=== PATIENT | female | born 1950 | race Caucasian/White ===

== ENCOUNTER → 2018-04-30 10:46 | Outpatient (REF) | payer MEDICARE, SELFPAY ==
[2018-04-30 13:02] LABS: ALT 196 U/L (12-78); AST 94 U/L (15-37); Albumin 3.9 g/dL (3.4-5.0); Alkaline Phosphatase 83 U/L (46-116); Bilirubin, Direct 0.16 mg/dL (0.00-0.20); Bilirubin, Total 0.6 mg/dL (0.2-1.0); Total Protein 7.6 g/dL (6.4-8.2)
[2018-04-30 15:52] LABS: Cholesterol 276 mg/dL (50-200); HDL Cholesterol 35 mg/dL (40-60); LDL CHOLESTEROL 187 mg/dL (<100); Triglyceride 263 mg/dL (30-150)
== END ==
LOC: NCHCN 10:46
PROVIDERS: PCP Nurse Practitioner Family; Visit Provider Nurse Practitioner Family
DX: E78.5 Hyperlipidemia, unspecified (principal); K76.0 Fatty (change of) liver, not elsewhere classified; R79.89 Other specified abnormal findings of blood chemistry; E11.9 Type 2 diabetes mellitus without complications; I10 Essential (primary) hypertension
CPT/HCPCS: 80061; 80076; 83721

== ENCOUNTER 2018-09-06 09:28 | Outpatient (REF) | payer MEDICARE, SELFPAY | END 2018-09-06 09:48 | LOC: NCHCN 09:28 | PROVIDERS: PCP Nurse Practitioner Family; Visit Provider Nurse Practitioner Family | DX: N39.0 Urinary tract infection, site not specified (principal) | CPT/HCPCS: 87077; 87086; 87186 ==

== ENCOUNTER 2018-09-30 13:00 | Outpatient (REF) | payer MEDICARE, SELFPAY ==
[2018-09-30 14:25] LABS: ALT 194 U/L (12-78); AST 99 U/L (15-37); Albumin 4.1 g/dL (3.4-5.0); Alkaline Phosphatase 73 U/L (46-116); GGT 147 U/L (5-55)
[2018-09-30 15:00] LABS: Bilirubin, Direct 0.21 mg/dL (0.00-0.20); LDH 162 U/L (81-234)
[2018-09-30 15:04] LABS: Hemoglobin A1C 7.5 % (4.5-6.2)
== END 2018-09-30 13:20 ==
LOC: NCHCN 13:00
PROVIDERS: PCP Nurse Practitioner Family; Visit Provider Nurse Practitioner Family
DX: E11.9 Type 2 diabetes mellitus without complications (principal); E78.5 Hyperlipidemia, unspecified; K76.0 Fatty (change of) liver, not elsewhere classified
CPT/HCPCS: 80076; 82977; 83036; 83615

== ENCOUNTER 2019-02-10 01:40 | Outpatient (CLI) | payer MEDICARE, SELFPAY ==
--- NOTE | 2019-02-10 09:25 | DI.MAMMO_ITS ---
SYMPTOMS/DIAGNOSIS: SCREENING, Z12.31 MAMMOGRAM: Mammograms were interpreted according to the usual protocol including computer analysis with CAD system, tomosynthesis and C view imaging. The breast tissue is of moderate radiodensity. There is no evidence of a dominant mass. There are no suspicious calcifications. A rounded density projected over the inferior portion of the right breast is unchanged when compared with previous images. SUMMARY: No evidence of malignancy, Category 2, yearly screening mammography is recommended. Breast density Category B. MQSA ASSESSMENT OF FINDINGS: Negative with benign findings. Category 2. Patient will receive a letter notifying them of these results. BI-RADS category B. There are scattered areas of fibroglandular density.
== END 2019-02-10 02:00 ==
PROVIDERS: PCP Nurse Practitioner Family; Visit Provider Nurse Practitioner Family
DX: Z12.31 Encounter for screening mammogram for malignant neoplasm of breast (principal)
CPT/HCPCS: 77063; 77067

== ENCOUNTER 2019-06-09 09:28 | Outpatient (REF) | payer MEDICARE, SELFPAY ==
[2019-06-09 15:21] LABS: ALT 40 U/L (14-59); AST 21 U/L (15-37); Albumin 4.2 g/dL (3.4-5.0); Alkaline Phosphatase 58 U/L (46-116); Anion Gap 9.5 mmol/L (3-11); BUN 16 mg/dL (7-18); Bilirubin, Total 0.8 mg/dL (0.2-1.0); CO2 29.5 mmol/L (21.0-32.0); CREATININE 0.87 mg/dL (0.55-1.02); Calcium 9.8 mg/dL (8.5-10.1); Calculated LDL 86 mg/dL; Chloride 99 mmol/L (98-107); Cholesterol 153 mg/dL (50-200); Glucose 132 mg/dL (70-100); HDL Cholesterol 39 mg/dL (40-60); Potassium 4.6 mmol/L (3.5-5.1); Sodium 138 mmol/L (136-145); Total Protein 7.8 g/dL (6.4-8.2); Triglyceride 142 mg/dL (30-150)
== END 2019-06-09 09:48 ==
LOC: NCHCN 09:28
PROVIDERS: PCP Nurse Practitioner Family; Visit Provider Nurse Practitioner Family
DX: E78.5 Hyperlipidemia, unspecified (principal); E11.9 Type 2 diabetes mellitus without complications; I10 Essential (primary) hypertension
CPT/HCPCS: 80053; 80061

== ENCOUNTER 2020-01-09 12:17 | Outpatient (REF) | payer MEDICARE, SELFPAY ==
[2020-01-09 20:27] LABS: ALT 25 U/L (14-59); AST 19 U/L (15-37)
[2020-01-09 20:42] LABS: Hemoglobin A1C 6.3 % (3.8-5.6)
== END 2020-01-09 12:37 ==
LOC: NCHCN 12:17
PROVIDERS: PCP Nurse Practitioner Family; Visit Provider Nurse Practitioner Family
DX: E11.9 Type 2 diabetes mellitus without complications (principal); K76.0 Fatty (change of) liver, not elsewhere classified
CPT/HCPCS: 83036; 84450; 84460

== ENCOUNTER 2020-02-08 08:29 | Outpatient (CLI) | payer MEDICARE, SELFPAY ==
[2020-02-09 16:52] LABS: COVID-19 RT-PCR UVMMC Result Negative (Negative)
== END 2020-02-08 08:49 ==
PROVIDERS: PCP Nurse Practitioner Family; Visit Provider Nurse Practitioner Family
DX: Z03.818 Encounter for observation for suspected exposure to other biological agents ruled out (principal)
CPT/HCPCS: U0003

== ENCOUNTER 2020-06-04 19:04 | Outpatient (REF) | payer MEDICARE, SELFPAY ==
[2020-06-07 15:55] LABS: Patient Race White; SARS-CoV-2 RNA Undetected (Undetected); SARS-CoV-2 Specimen Source Nasal
== END 2020-06-04 19:24 ==
LOC: NCHCN 19:04
PROVIDERS: PCP Nurse Practitioner Family; Visit Provider Family Medicine
DX: Z20.828 Contact with and (suspected) exposure to other viral communicable diseases (principal)
CPT/HCPCS: U0003

== ENCOUNTER 2020-06-12 10:02 | Outpatient (REF) | payer MEDICARE, SELFPAY ==
[2020-06-12 21:09] LABS: ALT 27 U/L (14-59); AST 14 U/L (15-37); Albumin 4.1 g/dL (3.4-5.0); Alkaline Phosphatase 53 U/L (46-116); Anion Gap 5.5 mmol/L (3-11); BUN 13 mg/dL (7-18); Bilirubin, Total 0.7 mg/dL (0.2-1.0); CO2 30.5 mmol/L (21.0-32.0); CREATININE 0.86 mg/dL (0.55-1.02); Calcium 9.6 mg/dL (8.5-10.1); Chloride 100 mmol/L (98-107); Glucose 110 mg/dL (74-106); Potassium 4.3 mmol/L (3.5-5.1); Sodium 136 mmol/L (136-145); Total Protein 7.6 g/dL (6.4-8.2)
== END 2020-06-12 10:22 ==
LOC: NCHCN 10:02
PROVIDERS: PCP Nurse Practitioner Family; Visit Provider Nurse Practitioner Family
DX: I10 Essential (primary) hypertension (principal)
CPT/HCPCS: 80053

== ENCOUNTER 2020-07-02 14:26 | Outpatient (REF) | payer MEDICARE, SELFPAY ==
[2020-07-05 00:45] LABS: Patient Race White; SARS-CoV-2 RNA Undetected (Undetected); SARS-CoV-2 Specimen Source Nasal
== END 2020-07-02 14:46 ==
LOC: NCHCN 14:26
PROVIDERS: PCP Nurse Practitioner Family; Visit Provider Nurse Practitioner Family
DX: Z20.828 Contact with and (suspected) exposure to other viral communicable diseases (principal)
CPT/HCPCS: U0003

== ENCOUNTER 2020-08-06 21:44 | Outpatient (REF) | payer MEDICARE, SELFPAY ==
[2020-08-09 14:33] LABS: Patient Race White; SARS-CoV-2 RNA Undetected (Undetected); SARS-CoV-2 Specimen Source Nasal
== END 2020-08-06 22:04 ==
LOC: NCHCN 21:44
PROVIDERS: PCP Nurse Practitioner Family; Visit Provider Nurse Practitioner Family
DX: Z20.828 Contact with and (suspected) exposure to other viral communicable diseases (principal)
CPT/HCPCS: U0003

== ENCOUNTER 2020-08-15 00:38 | Outpatient (CLI) | payer MEDICARE, SELFPAY ==
--- NOTE | 2020-08-15 11:25 | DI.MAMMO_ITS ---
EXAM: MG MAMMO SCREENING CLINICAL HISTORY: SCREENING, Z12.31. TECHNIQUE: Bilateral full field digital CC and MLO mammographic images were obtained with 3D tomosyn thesis and utilizing computer aided detection (CAD). COMPARISON: Prior mammograms dating back to 2010, the most recent being January 2009. FINDINGS: There are no new spiculated masses. Well-defined round superficial nodule located inferomedially in the right breast is unchanged from prior studies. There are no new dominant masses nor malignant appearing microcalcification groups. Benign microcalci fications again noted bilaterally, unchanged. There is no new architectural distortion nor skin thic kening-retraction. IMPRESSION: No radiographic evidence of malignancy. Stable benign findings BI-RADS Category 2 - Benign Findings Breast Density - Category B - Scattered areas of fibroglandular density Breast density Category C or D implies that the patient has dense breast tissue. Dense breast tissue can make it harder to find cancer on a mammogram. Dense breast tissue is also associated with an incr eased risk of breast cancer. This information about the result of the mammogram report was provided to the patient to raise their awareness. Use this report when you speak with the patient about their risks for breast cancer, which includes their family history. At that time, you may recommend additional screening tests (Ultrasoun d or MRI) as these tests may add significant information. A negative radiographic report should not delay biopsy if a dominant or clinically suspicious mass is present. Up to ten percent of cancers are not identified on mammography. A negative report may reinforce clinical impression. Adenosis and dense breasts may obscure an underlying neoplasm. False positive reports average 6 to 10%. Patient will receive a letter notifying them of these results.
== END 2020-08-15 00:58 ==
PROVIDERS: PCP Nurse Practitioner Family; Visit Provider Nurse Practitioner Family
DX: Z12.31 Encounter for screening mammogram for malignant neoplasm of breast (principal); N63.10 Unspecified lump in the right breast, unspecified quadrant
CPT/HCPCS: 77063; 77067

== ENCOUNTER 2021-01-25 08:46 | Outpatient (REF) | payer MEDICARE, SELFPAY ==
[2021-01-25 14:08] LABS: ALT 41 U/L (14-59); AST 19 U/L (15-37); Albumin 4.2 g/dL (3.4-5.0); Alkaline Phosphatase 62 U/L (46-116); Anion Gap 6.1 mmol/L (3-11); BUN 15 mg/dL (7-18); Bilirubin, Total 0.5 mg/dL (0.2-1.0); CO2 31.9 mmol/L (21.0-32.0); CREATININE 0.8 mg/dL (0.55-1.02); Calcium 9.9 mg/dL (8.5-10.1); Calculated LDL 78 mg/dL (<100); Chloride 101 mmol/L (98-107); Cholesterol 154 mg/dL (<200); Glucose 130 mg/dL (74-106); HDL Cholesterol 41 mg/dL (40-60); Sodium 139 mmol/L (136-145); Total Protein 7.8 g/dL (6.4-8.2); Triglyceride 175 mg/dL (<150)
[2021-01-25 14:51] LABS: Hemoglobin A1C 6.4 % (<5.7)
== END 2021-01-25 08:47 | disposition home or self-care (01) ==
LOC: NCHCN 08:46
PROVIDERS: PCP Nurse Practitioner Family; Visit Provider Nurse Practitioner Family
DX: E11.9 Type 2 diabetes mellitus without complications (principal); I10 Essential (primary) hypertension; E78.5 Hyperlipidemia, unspecified; K76.0 Fatty (change of) liver, not elsewhere classified
CPT/HCPCS: 80053; 80061; 83036

== ENCOUNTER 2021-02-08 03:15 | Outpatient (CLI) | payer MEDICARE, SELFPAY ==
--- NOTE | 2021-02-08 | DI.DEXA_ITS ---
Exam(s) XR DEXA BONE DENSITY W/WO ALBERT EXAM: XR DEXA BONE DENSITY W/WO ALBERT CLINICAL HISTORY: DISORDER OF BONE DENSITY,M85.88 TECHNIQUE: COMPARISON: CR LUMBAR SPINE COMPLETE from 04/11/2014 FINDINGS: DEXA scan was performed according to the usual protocol. On the lateral vertebral scanogram, there i s a T12 compression fracture with increased loss of height of the vertebral body of T12 in comparison with prior lumbar radiographs of March 2014 Findings for left hip scanning showed T-score -1.4 with left femoral neck T-score -1.8. Prior examin ation of February 2018 showed left hip T-score -1.3. Lumbar spine scanning shows T-score -1.0, unchanged from prior examination of 2018. Scanning of the right forearm shows T-score -0.4. IMPRESSION: Findings consistent with osteopenia according to the WHO criteria. Previously noted T12 vertebral ro dy compression fracture shows increased loss of height since prior radiographs of March 2014. RADIATION DOSE DELIVERED: Total DLP
== END 2021-02-08 03:35 ==
PROVIDERS: PCP Nurse Practitioner Family; Visit Provider Nurse Practitioner Family
DX: M85.88 Other specified disorders of bone density and structure, other site (principal)
CPT/HCPCS: 77080

== ENCOUNTER 2021-02-14 00:56 | Outpatient (CLI) | payer MEDICARE, SELFPAY ==
--- NOTE | 2021-02-14 | DI.US_ITS ---
Exam(s) US ABDOMEN EXAM: US ABDOMEN CLINICAL HISTORY: FATTY LIVER DISEASE, K76.0 TECHNIQUE: Ultrasound abdomen performed using standard protocol. COMPARISON: No exams were available for comparison FINDINGS: ABDOMINAL AORTA AND IVC: Visualized portions normal caliber. PANCREAS: Normal where visualized. LIVER: Fatty liver. Hepatopedal flow in the Portal Vein. The liver measures 18.2 cm in length. GALLBLADDER: Status post cholecystectomy. BILIARY SYSTEM: Common bile duct measures < 7 mm. No intrahepatic biliary ductal dilation. KIDNEYS: Kidneys are symmetric in size. There is a 5 mm echogenic focus in the inferior pole of the l eft kidney which may represent a nonobstructing stone. No evidence of hydronephrosis. No renal mass or cyst identified. SPLEEN: Not enlarged. ASCITES: None seen. IMPRESSION: Hepatomegaly and fatty liver. DATA REPOSITORY:
== END 2021-02-14 01:16 ==
PROVIDERS: PCP Nurse Practitioner Family; Visit Provider Nurse Practitioner Family
DX: K76.0 Fatty (change of) liver, not elsewhere classified (principal); R16.0 Hepatomegaly, not elsewhere classified
CPT/HCPCS: 76700

== ENCOUNTER 2022-03-24 12:37 | Outpatient (REF) | payer MEDICARE, SELFPAY ==
[2022-03-24 15:15] LABS: Hemoglobin A1C 6.8 % (<5.7)
[2022-03-24 15:31] LABS: ALT 43 U/L (14-59); AST 30 U/L (15-37); Albumin 4.2 g/dL (3.4-5.0); Alkaline Phosphatase 61 U/L (46-116); BUN 17 mg/dL (7-18); Bilirubin, Total 0.5 mg/dL (0.2-1.0); CO2 29.5 mmol/L (21.0-32.0); CREATININE 0.9 mg/dL (0.55-1.02); Calcium 9.8 mg/dL (8.5-10.1); Calculated LDL 72 mg/dL (<100); Cholesterol 147 mg/dL (<200); Glucose 139 mg/dL (74-106); HDL Cholesterol 41 mg/dL (40-60); Triglyceride 172 mg/dL (<150)
[2022-03-24 15:33] LABS: Anion Gap 9.5 mmol/L (3-11); Chloride 98 mmol/L (98-107); Potassium 4.8 mmol/L (3.5-5.1); Sodium 137 mmol/L (136-145)
== END 2022-03-24 12:38 | disposition home or self-care (01) ==
LOC: NCHCN 12:37
PROVIDERS: PCP Nurse Practitioner Family; Visit Provider Nurse Practitioner Family
DX: E11.9 Type 2 diabetes mellitus without complications (principal); E78.5 Hyperlipidemia, unspecified; I10 Essential (primary) hypertension
CPT/HCPCS: 80053; 80061; 83036

== ENCOUNTER → 2022-05-02 00:04 | Outpatient (CLI) | payer MEDICARE, SELFPAY ==
--- NOTE | 2022-05-02 | DI.US_ITS ---
Exam(s) US ABDOMEN LIMITED EXAM: US ABDOMEN LIMITED CLINICAL HISTORY: FATTY LIVER K76.0 TECHNIQUE: Ultrasound abdomen performed using standard protocol. COMPARISON: US US ABDOMEN from 02/14/2021 FINDINGS: LIVER: Enlarged at 19.3 cm in length. Moderately increasedechogenicity, consistent with fat ext E a ptosis.. No focal liver lesions are seen.. GALLBLADDER: Status post cholecystectomy.. CERVANTES'S SIGN: Negative. BILIARY SYSTEM: No intrahepatic or extrahepatic biliary ductal dilation. RIGHT KIDNEY: Normal size. No evidence of renal calculi. No evidence of hydronephrosis. No suspicious renal mass. No cyst identified. PANCREAS: Normal where visualized. ABDOMINAL AORTA AND IVC: Visualized portions normal caliber. ASCITES: None seen. IMPRESSION: Stable appearance of hepatomegaly and moderate hepatic steatosis. DATA REPOSITORY:
--- NOTE | 2022-05-02 | DI.MAMMO_ITS ---
Exam(s) MAMMO SCREENING EXAM: MAMMO SCREENING CLINICAL HISTORY: SCREENING FOR BREAST CANCER Z12.31 TECHNIQUE: Mammograms were interpreted according to the usual protocol including computer analysis w [employer]xia[employer] CAD system, tomosynthesis and C-view imaging. COMPARISON: 2012 through 2019 FINDINGS: The breasts are composed of scattered fibroglandular densities, Breast Density category B. No suspicious masses or suspicious microcalcifications are seen. Stable 2 centimeters circumscribed nodule in the inferior right breast. Scattered benign calcifications as well as vascular calcificati ons. No skin thickening or abnormal axillary lymph nodes are seen. There has been no significant change from prior exams. IMPRESSION: BI-RADS Cat 2 - Benign Findings Yearly screening mammography is recomme nded. Breast Density - Category B, scattered fibroglandular densities. A negative radiographic report should not delay biopsy if a dominant or clinically suspicious mass is present. Up to ten percent of cancers are not identified on mammography. A negative report may reinforce clinical impression. Adenosis and dense breasts may obscure an underlying neoplasm. False positive reports average 6 to 10%. Patient will receive a letter notifying them of these results.
--- OUTSIDE RECORDS SUMMARY | 2022-05-02 00:06 | XMS_ITS | Encounter Summary ---
:1950 Author Organization [facility] [place] [address] Care Team Providers Name Role Phone Maureen Wang APRN Primary Care Provider [phone] Encounter Details Date Type Department Care Team Description 04/10/2021 Telephone Dermatology at [facility] Carolina Avalos RN [address] [place] [address] Social History Tobacco Use Types Packs/Day Years Used Date Never Smoker Smokeless Tobacco: Never Used Sex Assigned at Date Recorded Not on file documented as of this encounter Miscellaneous Notes Telephone Encounter - Lakeisha Almonte - 04/10/2021 11:39 AM EDT CALLED PATIENT TO RESCHEDULE COOLSCULPT WITH AP. LEFT [phone] FOR CALLBACK. documented in this encounter Plan of Treatment Not on filedocumented as of this encounter Visit Diagnoses Not on filedocumented in this encounter Care Teams Stove Cleaner Relationship Specialty Start Date End Date Maureen Wang APRN PCP - General 03/01/15 [address] [place] [address] documented as of this encounter
--- OUTSIDE RECORDS SUMMARY | 2022-05-02 00:06 | XMS_ITS | Encounter Summary ---
:1950 Author Organization [facility] [place] [address] Care Team Providers Name Role Phone Maureen Wang APRN Primary Care Provider [phone] Reason for Visit Reason Comments Procedure Encounter Details Date Type Department Care Team Description 04/22[facility] Julio Saavedra RN cosmetic procedure [address] [place] [address] Social History Tobacco Use Types Packs/Day Years Used Date Never Smoker Smokeless Tobacco: Never Used Sex Assigned at Date Recorded Not on file documented as of this encounter Progress Notes Carolina Avalos RN - 04/22/2021 2:00 PM EDT See same day cosmetic note for treatment details. documented in this encounter Plan of Treatment Not on filedocumented as of this encounter Visit Diagnoses Diagnosis Encounter for cosmetic procedure documented in this encounter Care Teams Chef & Owner Relationship Specialty Start Date End Date Maureen Wang APRN PCP - General 03/01/15 [address] [place] [address] documented as of this encounter
--- OUTSIDE RECORDS SUMMARY | 2022-05-02 00:06 | XMS_ITS | Encounter Summary ---
:1950 Author Organization [facility] [place] [address] Care Team Providers Name Role Phone Maureen Wang APRN Primary Care Provider [phone] Encounter Details Date Type Department Care Team Description 02/15/2021 Telephone Dermatology at [facility] Carolina Avalos RN [address] [place] [address] Social History Tobacco Use Types Packs/Day Years Used Date Never Smoker Smokeless Tobacco: Never Used Sex Assigned at Date Recorded Not on file documented as of this encounter Miscellaneous Notes Telephone Encounter - Lakeisha Almonte - 02/15/2021 1:45 PM EDT CALLED PATIENT TO LET HER KNOW WE NEEDED TO RESCHEDULE HER APPTS ON 02/22 WITH PHIL (IN NURSE MEETING). LET HER KNOW I WAS HOLDING THE FOLLOWING February UNTIL I HEARD BACK. LEFT [phone] FOR CALLBACK. documented in this encounter Plan of Treatment Not on filedocumented as of this encounter Visit Diagnoses Not on filedocumented in this encounter Care Teams Center Human Resources Manager Relationship Specialty Start Date End Date Maureen Wang APRN PCP - General 03/01/15 [address] [place] [address] documented as of this encounter
--- OUTSIDE RECORDS SUMMARY | 2022-05-02 00:06 | XMS_ITS | Encounter Summary ---
:1950 Author Organization [facility] [place] [address] Care Team Providers Name Role Phone Maureen Wang APRN Primary Care Provider Encounter Details Date Type Department Care Team Description 04/22/2021 Office Visit Dermatology at [facility] [place] [address] Carolina Avalos RN cosmetic procedure [address] [place] [address] Social History Tobacco Use Types Packs/Day Years Used Date Never Smoker Smokeless Tobacco: Never Used Sex Assigned at Date Recorded Not on file documented as of this encounter Progress Notes Carolina Avalos RN - 04/22/2021 1:00 PM EDT DATE OF SERVICE: 04/22/2021 PROVIDER: Carolina Avalos RN Supervising provider (indirect onsite): Malathi Barboza MD Mai Donato : 1950 PATIENT PREFERENCES: -prefers to be called: Mai HELMS Mai Donato is a 70 y.o. year old female. Here for CoolSculpt procedure 04/22/2021. Date and name of most recent procedure: consultation only, patient of Lesly Morrow MD Patient has had no recent changes in health, unexplained weight loss or skin concerns. Here today for coolSculpt to the lower abdomen; will treat right and left lower abdomen. Patient elects to not take pre-treatment photos. COSMETIC TREATMENT VISIT -Any new medications?: no -Pt received pre and post instructions? Yes in AVS -HSV prophylaxis? NA -Stopped retinoids/ Vitamin C/ AHAs? NA -Recent sun exposure? NA -, lactating or trying to conceive?: no -Recent ibuprofen, aspirin, or other blood thinner? (including ginko biloba, vitamin E, fish oil) no ADR: No Known Allergies MEDS: Current Outpatient Medications Medication Sig Dispense Refill ??? FLUoxetine (PROZAC) 10 mg Capsule TAKE TWO CAPSULES BY MOUTH EVERY DAY 3 ??? omeprazole (PRILOSEC) 20 mg Capsule, Delayed Release(E.C.) ??? losartan (COZAAR) 50 mg Tablet 50 mg daily. ??? LORazepam (ATIVAN) 0.5 mg Tablet 0.5 mg as needed. ??? aspirin 81 mg Tablet, Delayed Release (E.C.) Take 81 mg by mouth daily. ??? metFORMIN (GLUCOPHAGE) 500 mg Tablet Take 1,000 mg by mouth 2 times daily (with meals). ??? hydrochlorothiazide (HYDRODIURIL) 25 mg Tablet Take 25 mg by mouth daily. No current facility-administered medications for this visit. EXAMINATION: -New findings: TREATMENT MAPS: DIAGNOSIS/ASSESSMENT: # Body Contouring with Coolsculpting Areas to be treated: - Treatment today? Y, 04/22/2021, see Coolsculpt Log - Special considerations for this patient: - Consent signed?: 04/22/2021 - Consult completed: No, referred directly by Lesly Morrow MD - Gilbert quoted: 1500 per site x 2 sites = 3000 - Coolsculpt AVS given: yes - Notes: patient elects for no pre-treatment photos, able to receive 20% off future CoolSculpt treatments PROCEDURE/TREATMENT LOG(S): Date: 04/22/2021 CoolSculpt Attachments: CoolAdvantage Plus Area treated: Right/left lower abdomen Additional areas discussed: none Total Cost today: 3000 Notes: Follow Up: RTC PRN If any questions or concerns arise, patient is welcome to return to clinic. COSMETIC COST TODAY: $3000 Treatment delivered by Carolina Avalos RN with indirect, onsite supervision by Malathi Barboza MD I was consulted regarding the performed service and I agree with the accuracy of the documentation in this encounter, MD Malathi Hernández MD Department of Dermatology documented in this encounter Plan of Treatment Not on filedocumented as of this encounter Visit Diagnoses Diagnosis Encounter for cosmetic procedure documented in this encounter Care Teams Mineral Industry Teacher Relationship Specialty Start Date End Date Maureen Wang, TUBE SIZER OPERATOR PCP - General 03/01/15 [address] [place] [address] documented as of this encounter
--- OUTSIDE RECORDS SUMMARY | 2022-05-02 00:06 | XMS_ITS | Clinical Summary ---
:1950 Author Organization [facility] Address [address] [address] Care Team Providers Name Role Phone Maureen Wang APRN Primary Care Provider [phone] Allergies No known active allergies Medications Medication Sig Dispensed Refills Start Date End Date Status hydrochlorothiazide Take 25 mg by 0 Active (HYDRODIURIL) 25 mg Tablet mouth daily. losartan (COZAAR) 50 mg 50 mg daily. 0 10/02/2017 Active Tablet LORazepam (ATIVAN) 0.5 mg 0.5 mg as 0 10/06/2017 Active Tablet needed. aspirin 81 mg Tablet, Take 81 mg by 0 Active Delayed Release (E.C.) mouth daily. metFORMIN (GLUCOPHAGE) 500 Take 1,000 mg 0 Active mg Tablet by mouth 2 times daily (with meals). omeprazole (PRILOSEC) 20 0 12/20/2018 Active mg Capsule, Delayed Release(E.C.) FLUoxetine (PROZAC) 10 mg TAKE TWO 3 06/11/2019 Active Capsule CAPSULES BY MOUTH EVERY DAY Active Problems Problem Noted Date Fatty liver 04/05/2019 Diabetes mellitus 04/05/2019 Polyp of colon, adenomatous 04/05/2019 Osteopenia 04/05/2019 History of renal stone 04/05/2019 Depression 04/05/2019 Hyperlipidemia 04/05/2019 Gastroesophageal reflux 04/05/2019 Hypertension 04/05/2019 Anxiety 04/05/2019 History of squamous cell carcinoma 10/06/2011 History of basal cell carcinoma 10/06/2011 Social History Tobacco Use Types Packs/Day Years Used Date Never Smoker Smokeless Tobacco: Never Used Sex Assigned at Date Recorded Not on file Last Filed Vital Signs Vital Sign Reading Time Taken Comments Blood Pressure 138/74 07/07/2019 1:53 PM EDT Pulse 83 04/05/2019 12:56 PM EDT Temperature - - Respiratory Rate - - Oxygen Saturation - - Inhaled Oxygen Concentration - - Weight 75.4 kg (166 lb 3.2 oz) 04/05/2019 12:56 PM EDT Height 170.2 cm (5' 7) 04/05/2019 12:56 PM EDT Body Mass Index 26.03 04/05/2019 12:56 PM EDT Plan of Treatment Health Maintenance Due Date Last Done Comments Covid-19 Vaccine (#1) 1956 Pneumoccocal Vaccine: 65+ (1 - PCV) 1957 DM Opthalmology Exam 1961 DM Urine Microalbumin yearly 1961 Hepatitis C Screening 1969 Tdap adult 1970 Tetanus vaccine 1970 Breast Cancer Share Decision Needed 1991 Colonoscopy 1996 Breast Cancer screening 2001 Zoster vaccine (1 of 2) 2001 Advance Directive 2006 Bone Density Scan 2016 DM Hemoglobin A1c 07/06/2019 04/05/2019 DM Creatinine yearly 04/05/2020 04/05/2019 Influenza (Flu) vaccine (1 of 1 - Influenza standard 05/15/2022 series) Lipid Screening 04/05/2024 04/05/2019 Insurance Payer Benefit Plan / Subscriber ID Effective Phone Address T ype Group Dates MEDICARE MEDICARE PART A [id number] 2018-Prese [phone] [place] [address] AARP SUPPLEMENT AARP SUPPLEMENT [id number] 2017-Cris [address] [place] [address] Care Teams Billet Worker Relationship Specialty Start Date End Date Maureen Wang, CONTROL AREA OPERATOR PCP - General 03/01/[address] [place] [id number]
--- OUTSIDE RECORDS SUMMARY | 2022-05-02 00:07 | XMS_ITS | Encounter Summary ---
:1950 Author Organization [facility] [place] [address] Care Team Providers Name Role Phone Maureen Wang APRN Primary Care Provider [phone] Encounter Details Date Type Department Care Team Description 07/07/2019 Telephone Dermatology at [facility], [facility], [facility] [place] [address] [place] [address] [address] [place], [place] [address] (Wo rk) Social History Tobacco Use Types Packs/Day Years Used Date Never Smoker Smokeless Tobacco: Never Used Sex Assigned at Date Recorded Not on file documented as of this encounter Miscellaneous Notes Telephone Encounter - Lilian Quiroz LPN - 07/07/2019 7:39 AM EDT Pre-Op Excision Phone Call Unable to reach Mai Donato by telephone to discuss pre-op procedure. Message left for patient to return my call. Lilian Quiroz LPN documented in this encounter Plan of Treatment Not on filedocumented as of this encounter Visit Diagnoses Not on filedocumented in this encounter Care Teams Claims Customer Service Representative Relationship Specialty Start Date End Date Maureen Wang APRN PCP - General 03/01/15 [address] [place], [place] [id number] documented as of this encounter
--- OUTSIDE RECORDS SUMMARY | 2022-05-02 00:07 | XMS_ITS | Encounter Summary ---
:1950 Author Organization [facility] [place] [address] Care Team Providers Name Role Phone Maureen Wang APRN Primary Care Provider [phone] Encounter Details Date Type Department Care Team Description 04/08/2019 Orders Only [facility]ology at [facility] Tariq Lindsey NAFLD (nonalcoholic fatty li genet disease); [facility] FRANCO Mota Type 2 diabetes mellitus with other spec ified complication, without long-[place] [address] [facility] [phone] [place] [address] Social History Tobacco Use Types Packs/Day Years Used Date Never Smoker Smokeless Tobacco: Never Used Sex Assigned at Date Recorded Not on file documented as of this encounter Plan of Treatment Not on filedocumented as of this encounter Visit Diagnoses Diagnosis NAFLD (nonalcoholic fatty liver disease) Other chronic nonalcoholic liver disease Type 2 diabetes mellitus with other spec ified complication, without long-term current use of insulin documented in this encounter Care Teams Heating And Ventilating Drafter Relationship Specialty Start Date End Date Maureen Wang APRN PCP - General 03/01/15 [address] [place], [place] [address] documented as of this encounter
--- OUTSIDE RECORDS SUMMARY | 2022-05-02 00:07 | XMS_ITS | Encounter Summary ---
:1950 Author Organization [facility] [place] [address] Care Team Providers Name Role Phone Maureen Wang APRN Primary Care Provider [phone] Encounter Details Date Type Department Care Team Description 06/16/2019 Telephone Dermatology at [facility], [facility], [facility] [place] [address] [facility] [phone] [address] [place], [place] [address] (Wo rk) Social History Tobacco Use Types Packs/Day Years Used Date Never Smoker Smokeless Tobacco: Never Used Sex Assigned at Date Recorded Not on file documented as of this encounter Miscellaneous Notes Telephone Encounter - Teri Nam - 06/16/2019 11:49 AM EDT Patient contacted the clinic on 06/14 to reschedule her canceled visit on 06/10. I returned her call today but was unable to speak w/ anyone when I called. I was able to leave a detailed message regarding the 07/07 appointment currently scheduled. I left both 01/3105 and 01/3100 for call back if this date and time does not work for her. documented in this encounter Plan of Treatment Not on filedocumented as of this encounter Visit Diagnoses Not on filedocumented in this encounter Care Teams Distribution Spec Relationship Specialty Start Date End Date Maureen Wang APRN PCP - General 03/01/15 [address] [place] [address] documented as of this encounter
--- OUTSIDE RECORDS SUMMARY | 2022-05-02 00:07 | XMS_ITS | Encounter Summary ---
:1950 Author Organization [facility] [place] [address] Care Team Providers Name Role Phone FelipeMaureen gordon VERONA Primary Care Provider [phone] Reason for Visit Reason Comments Procedure Encounter Details Date Type Department Care Team Description 07/07/2019 Procedure visit Dermatology at [facility] ([facility] MD Arnol inclusion cyst) [address] [facility] [address] [facility] [phone] [place] [id number] Social History Tobacco Use Types Packs/Day Years Used Date Never Smoker Smokeless Tobacco: Never Used Sex Assigned at Date Recorded Not on file documented as of this encounter Last Filed Vital Signs Vital Sign Reading Time Taken Comments Blood Pressure 138/74 07/07/2019 1:53 PM EDT Pulse - - Temperature - - Respiratory Rate - - Oxygen Saturation - - Inhaled Oxygen Concentration - - Weight - - Height - - Body Mass Index - - documented in this encounter Patient Instructions Patient InstructionsLilian Quiroz LPN - 07/07/2019 1:30 PM EDT Section of Dermatology POST OPERATIVE INSTRUCTIONS Wash your hand before changing the dressing. The dressing on the site should remain in place and dry until Thursday The dressing should then be removed gently After removing the dressing, daily wound care should be performed as follows: Clean the wound with warm water and soap,then pat dry the area Apply either Vaseline or Aquaphor Ointment Cover the wound with a new dressing such as Telfa and Tape, or a Band-Aid Do not use peroxide or an antibiotic ointment /cream(Neosporin or Bacitracin) on the wound. For discomfort, you may take Tylenol or other non-aspirin pain medication for the first 48 hours, after 48 hours it is ok to switch to ibuprofen as needed. If bleeding should occur, pressure should be applied constantly for 15 minutes on the dressing with the help of a towel, wash cloth, or piece of gauze. The sutures should be removed in 10 days. It is important that you avoid strenuous and/or vigorous activities, heavy lifting (More than 5-10 lbs), and bending for a period of 2 weeks If you have questions, please contact the office of Dr. Odalys BROWN during the day at [phone] Nurse: Lilian After 5 PM and on weekends, please call the hospital number , and ask for the Used Car Manager cotton header. documented in this encounter Progress Notes Ciro Arenas MD - 07/07/2019 1:30 PM EDT Images from the original note were not included. Dermatology Procedure Note Surgeon: CIRO ARENAS MD Column Precaster: Lilian Quiroz LPN Referring provider: Dr. Arenas Preferred name: Mai Preferred contact method with results: phone Message okay? yes HPI/CC: Mai Donato is a 68 y.o. female here today for treatment of a cyst x 2 Relevant Pathology: none Examination & Findings: Skin exam: A focused skin exam was performed of the back. Skin findings: EIC x 2 (A) Lesion EIC 1.0 cm superior to lesion B (B) Lesion EIC 0.5cm inferior to lesion A Time Out Questions: A time out was performed including patient full name, date of and site. YES//NO If YES: details Any blood thinners? yes ASA Defibrillator or pacemaker? no Artificial heart valves? no Prosthetic devices or implants? no Abx prior to procedure? no If yes: Time taken? Allergies: Local anesthetics? Latex? Glue/adhesive? Chlorhexidine? none Patient Counseling & Consent: I previously explained the diagnosis to Mai and discussed treatment options. I explained the risksassociated with his procedure, including but not limited to: incomplete removal, recurrence, scar, keloid/hypertrophic scar, bleeding, infection, nerve damage, and bruising. A mutual decision was made to proceed after Mai expressed verbal understanding and agreement. Written consent obtained today. Procedure Details: Lesion A is first in all sections Name of procedure Excision w/ intermediate repair Location Right back Pre-op diagnosis EIC x 2 Size (maximal) (cm) 1.0cm/ 0.5cm Margins (cm) 0.3cm/narrow Size + margins (cm) 1.6cm/0.5cm Sterile prep Chloraprep Anesthesia 1% lidocaine with epinephrine 14cc Suture (adipose/dermis) Monocryl Suture (epidermis) Prolene Final wound length 4cm/2cm Procedure Notes: The patient was prepared and draped in a sterile manner. Anesthesia was administered by local infiltration. A fusiform shape was drawn around the lesion, and the margins were incised to the level of the fascia with a # 10 blade. The tissue was removed with sharp and blunt dissection. The lateral margins of the the resulting defect were minimally undermined with sharp and blunt dissection, and hemostasis was obtained with electrocautery. The deeper layers of the defect including subcutaneous fat wereapproximated to reduce tension on the suture line. A layered wound closure was performed, as above. Post-Operative Details: Specimen in formalin and sent to Pathology Yes Wound dressing Vaseline and pressure dressing Post-op pain 0/10 Complications None Blood loss <1mL Suture removal (days) 10 Post-Operative Photo: Patient Instructions: Wound care reviewed with patient and AVS provided. In the event of a suspected infection, the patient knows to call the clinic or the on-call form grader over the weekend. Follow up: 10 days for suture removal Signatures: I, Lilian Quiroz LPN, have performed the documentation for this encounter in the presence of and acting as a scribe for CIRO ARENAS MD. I performed the services which were documented by the scribe, and I agree with the accuracy of the documentation in this encounter. CIRO ARENAS MD Section of Dermatology [facility] documented in this encounter Plan of Treatment Not on filedocumented as of this encounter Procedures Procedure Name Priority Date/Time Associated Diagnosis Comme nts SPECIMEN TO Routine 07/07/2019 5:12 PM EIC (epidermal Results for this PATHOLOGY EDT inclusion cyst) procedure ar e in the results section. SURGICAL PATHOLOGY Routine 07/07/2019 2:10 PM Res ults for this REPORT EDT procedure are i n the results section. documented in this encounter Results Specimen to Pathology (07/07/2019 5:12 PM EDT) Specimen Anatomical Collection Method Collection Time Receive d Time (Source) Location / / Volume Laterality AP Specimen 07/07/2019 5:12 PM 9 9:48 EDT AM [address] [facility] - 07/08/2019 9:48 AM EDT Specimen requisition ordered. ??Separate Pathology report to follow Resulting Agency Comment Spec In Lab Ciro Arenas MD PATHOLOGY/CYTOLOGY ORDERABLE S Performing Organization Address City/State/[place] [address] Surgical Pathology Report (07/07/2019 2:10 PM EDT) Component Value Ref Test Analysis Performed At [facility] gist Range Method Time Signature Surgical [id number] ? Location: [facility] Report The signing pathologist has (i) examined the relevant preparation(s) for the [facility] specimen(s) and (ii) rendered or confirmed the diagnosis(es) . [facility] . ?Surgic al Pathology DIAGNOSIS A - Skin, right back superior to specimen b, excision: - Portion of follicular cyst, ruptured, ?? present at the deep specimen edge - Incidental ??intradermal m elanocytic nevus, free of the specimen edges in the examined planes of section B - Skin, right back inferior to specimen a, excision: - Fragments of keratin, consistent with contents of follicul ar cyst Electronically signed by: ??Beatriz Bautista MD Verified: ??07/13/2019 ?Dermatopathologist Performed at: ??-[facility] Dept. of Pathology, [place], [place] CLINICAL INFORMATION Specimen Submitted: A - Skin, right back superior to specimen b, excision, (1) B - Right back inferior to specimen a, excision, (1) Clinical History and Diagnosis: A - 1.0 cm EIC; EIC B - 0.5 cm EIC; EIC SPECIMEN PROCESSING A - Labeled/Fixative: Right back superior to B, formalin. Quantity/Size: ??Single, 4.0 x 1.3 x 1.2 cm. Tissue Description: Elliptic al excision of brown skin with central punctum. There is a 0.5 cm holcomb-brown papule a t one pole. Underlying the punctum is a ??1.5 x 0.9 x 0.6 cm cyst filled with holcomb, so ft material. The cyst lies exposed at the deep margin. Sections/Processing: Inked, serially sectioned an d call center support representative sections submitted in 3 cassettes as follows: ?A1: ??Papule ?A2-A3: ??Cyst B - Labeled/Fixative: Right back inferior to A, formalin. Quantity/Size: ??Two, 0.7 and 0.9 cm. Tissue Description: Irregular, holcomb-white friable tissue. Sections/Processing: Bisected and entirely submitted in 1 cassette labeled B1. ??sns Specimen (Source) Anatomical Collection Method Collection Time Re ceived Time Location / / Volume Laterality 07/07/2019 2:10 PM EDT Ciro Arenas MD PATHOLOGY/CYTOLOGY ORDERABLE S Performing Organization Address City/State/[place] [address] [address] documented in this encounter Visit Diagnoses Diagnosis EIC (epidermal inclusion cyst) Sebaceous cyst documented in this encounter Care Teams City Superintendent Relationship Specialty Start Date End Date Maureen Wang APRN PCP - General 03/01/15 [address] [place] [address] documented as of this encounter
--- OUTSIDE RECORDS SUMMARY | 2022-05-02 00:07 | XMS_ITS | Encounter Summary ---
:1950 Author Organization [facility] Address [facility] [place] [address] Care Team Providers Name Role Phone Maureen Wang TECHNICAL DOCUMENT WRITER Primary Care Provider [phone] Reason for Visit Reason Comments Skin Check Encounter Details Date Type Department Care Team Description 03/10/2019 Office Visit Dermatology at [facility] story of SCC (squamous cell carcinoma) of skin; Julio Ambrose MD Epidermal inclusion cyst; [address] [facility] History of basal cell carcin john; [place] [address] Multiple benign nevi; [phone] [facility] Lentigines; RD-DERMATOLOGY Seborrheic keratoses [place], [place] [address] Social History Tobacco Use Types Packs/Day Years Used Date Never Smoker Smokeless Tobacco: Never Used Sex Assigned at Date Recorded Not on file documented as of this encounter Progress Notes Ciro Morrow MD - 03/10/2019 3:30 PM EDT Images from the original note were not included. Mai Donato 03/10/2019 [id number] Lesly Morrow MD ([id number]) Chief Problem: 1. Pigmented Lesion and Skin Cancer Examination 2. 11/25/02-Left??upper posterior calf-SCC,excision 3. 08/15/05-medial canthus-BCC History: 68 y.o. year old female. Established patient to me. No significant changes in health or medications since last visit. Patient presents to the clinic today for a full skin cancer examination with history as listed above. No specific areas of concern today. Medications: reviewed All: reviewed Review of Systems: Feels well, no fatigue, no weight loss, no other skin concerns Current Outpatient Medications on File Prior to Visit Medication Sig Dispense Refill ??? losartan (COZAAR) 50 mg Tablet 50 mg daily. ??? pravastatin (PRAVACHOL) 80 mg Tablet 80 mg daily. ??? LORazepam (ATIVAN) 0.5 mg Tablet 0.5 mg as needed. ??? FLUoxetine (PROZAC) 10 mg Capsule 10 mg daily. ??? aspirin 81 mg Tablet, Delayed Release (E.C.) Take 81 mg by mouth daily. ??? metFORMIN (GLUCOPHAGE) 500 mg Tablet Take 500 mg by mouth daily. ??? hydrochlorothiazide (HYDRODIURIL) 25 mg Tablet Take 25 mg by mouth daily. No current facility-administered medications on file prior to visit. Examination: Patient was alert, well-appearing and in no noticeable distress. A skin examination was performed. This includes the head, neck, face and scalp including behind the ears. The chest, abdomen, back, and axillae, as well as the arms, hands, palms, fingers. Legs, feet, toes and soles were also examined. Specific findings: 1. History of basal cell carcinoma located on the right medial canthus s/p Mohs, 08/2005 2. History of squamous cell carcinoma - Right thigh s/p ED&C, 04/2018 - Left upper posterior calf s/p excision, 11/2002 - No signs of recurrence 3. Epidermal inclusion cyst x 2 located on the back 4. Benign appearing nevi located on the trunk and extremities, including the right great toe 5. Solar lentigines located on the trunk and extremities 6. Seborrheic keratoses located on the trunk and extremities Photos taken with patient consent by Dr. Lesly Morrow. Assessment/Diagnosis: 1. History of basal cell carcinoma 2. History of squamous cell carcinoma 3. Epidermal inclusion cysts, x 2 on back, excision at a later date 4. Benign appearing nevi, patient reassured 5. Solar lentigines, patient reassured 6. Seborrheic keratoses, patient reassured Treatment/Plan: Discussion - Spent over half of this visit discussing pathophysiology and the diagnosis, and counselling this patient on treatment options, expectations and follow-up plan. - Specifically discussed: 1. Sun avoidance re-emphasized, sunscreen, hats, clothing as always. 2. Discussed excision of epidermal inclusion cysts on her back. Patient would like to proceed with removal of both. Follow up: 1. For EIC excision. 2. 1 year for skin cancer exam, sooner if needed. I am documenting this encounter acting as the scribe for and in the presence of Dr. Morrow,Lilian Cohn LPN and Ann Moore. I performed the above scribed service and agree with the accuracy of the documentation in this encounter, MD Lesly Palacios M.D. Section of Dermatology documented in this encounter Plan of Treatment Not on filedocumented as of this encounter Visit Diagnoses Diagnosis History of SCC (squamous cell carcinoma) of skin Personal history of other malignant neop lasm of skin Epidermal inclusion cyst Sebaceous cyst History of basal cell carcinoma Personal history of other malignant neop lasm of skin Multiple benign nevi Benign neoplasm of skin, site unspecifie d Lentigines Other dyschromia Seborrheic keratoses Other seborrheic keratosis documented in this encounter Care Teams Film Librarian Relationship Specialty Start Date End Date Maureen Wang, TECHNICAL DOCUMENT WRITER PCP - General 03/01/15 [address] [place] [address] documented as of this encounter
--- OUTSIDE RECORDS SUMMARY | 2022-05-02 00:07 | XMS_ITS | Encounter Summary ---
:1950 Author Organization [facility] Address [facility] [place] [address] Care Team Providers Name Role Phone Maureen Wang AUTOMATIC ENGRAVER Primary Care Provider [phone] Reason for Visit Reason Comments GI Problem Consultation (Routine) - Closed Specialty Diagnoses / Procedures Referred By Contact Refer red To Contact Gastroenterology Diagnoses fatty liver disease, elevated LFTs, hyperlipidemia Maureen Wang, [facility] c Gastro 4l AUTOMATIC [employer] [facility] [address] [place] [address] [place] [address] Phone: Fax: Referral ID Status Reason Start Date Expiration Date Visits V isits Requested Authorized [id number] Closed Consult, 02/02/2019 02/02/2020 1 1 [facility] & Treat Connection Center Encounter Details Date Type Department Care Team Description 04/05/2019 Office Visit Gastroenterology at [facility] Tariq Lindsey Fatty liver (Primary Dx); [facility] FRANCO Mota Abnormal liver function tests; [place] [address] [facility] hyperlipidemia; [phone] Center Type 2 diabetes mellitus with other spec ified complication, without long-term [place] [address] Social History Tobacco Use Types Packs/Day Years Used Date Never Smoker Smokeless Tobacco: Never Used Sex Assigned at Date Recorded Not on file documented as of this encounter Last Filed Vital Signs Vital Sign Reading Time Taken Comments Blood Pressure 150/83 04/05/2019 12:56 PM EDT Pulse 83 04/05/2019 12:56 PM EDT Temperature - - Respiratory Rate - - Oxygen Saturation - - Inhaled Oxygen Concentration - - Weight 75.4 kg (166 lb 3.2 oz) 04/05/2019 12:56 PM EDT Height 170.2 cm (5' 7) 04/05/2019 12:56 PM EDT Body Mass Index 26.03 04/05/2019 12:56 PM EDT documented in this encounter Progress Notes Tariq Lindsey PA - 04/05/2019 1:00 PM EDT Images from the original note were not included. HEPATOLOGY NEW PATIENT CONSULTATION Patient: Mai Donato Sex: female Date of : 1950 WARRANT CLERK: Tariq Lindsey PA-C PCP: Maureen Wang APRN Requesting Provider: Maureen Wang 04/05/19 REASON FOR CONSULTATION: Fatty liver, elevated LFTs PROBLEM LIST Patient Active Problem List Diagnosis Code ??? History of squamous cell carcinoma Z85.89 ??? History of basal cell carcinoma Z85.828 ??? Fatty liver K76.0 ??? Diabetes mellitus E11.9 ??? Polyp of colon, adenomatous D12.6 ??? Osteopenia M85.80 ??? History of renal stone Z87.442 ??? Depression F32.9 ??? Hyperlipidemia E78.5 ??? Gastroesophageal reflux K21.9 ??? Hypertension I10 ??? Anxiety F41.9 HISTORY OF PRESENT ILLNESS Mai Donato is a 68 y.o. female referred to hepatology clinic for evaluation of fatty liver disease and associated abnormal liver function tests. She was seen previously by a local casing worker, Dr. Calles, who suggested that she lose about 15 pounds and cut alcohol use, as well as discontinue her statin for hyperlipidemia for the treatment of fatty liver. She states that she is gone back and forth with her PCP about treatment of hyperlipidemia, which is very prevalent in her family history, as a statin would be most preferred clinically, and she is not interested or cannot tolerate other options. She was considering Repatha, but this wasgoing to be expensive and she would rather not give herself injections. She states that she has lostabout 10 pounds over the last year and has made some good changes with her diet. [place] and was working out a lot. She admits that there was a period of time for about 2 years where she was really bad with alcohol use, and was having a couple glasses of wine every day. Right now she probably drinks about 2 drinks weekly but only on weekends. She believes her diabetes is under fairly good control and is curious to see what her A1c is today. Previously it was 7.4% in November, though lately her sugars in the mornings have been between 90 and 110s. She is on 2000 mg of metformin daily and has not ever been on any other treatments. She is unsureif she has sleep apnea or issues with her thyroid. Her states that she snores during the night but she feels she sleeps well. Regarding symptoms, she states she has some vague upper abdominal cramping in the mornings that usually go away and these are of no concern to her. Heartburn is well controlled on medication. She denies any issues including jaundice, easy bruising or bleeding, swelling in her legs or abdomen, or pale-colored stools. Lately her bowel movements have been more in volume than usual, though this is not uncomfortable and does not cause any pain. She goes about 3 times after breakfast every day and sometimes needs to plan around this. She thinks this may be related to changes in her diet. She does have some stress in her life currently and is planning to separate from her . REVIEW OF SYSTEMS General: Admits weight loss (planned), denies fatigue, poor sleep, fever, chills, night sweats Skin: Denies new rashes, easy bruising, jaundice EENT: Denies blurred vision or change in vision, hearing loss, sinus problems, dry eyes or mouth Endocrine: Denies change in tolerance to heat or cold, excessive thirst Cardiovascular: Denies chest pain, palpitations or irregular heart beat, pain in legs with walking, swelling in feet Pulmonary: Denies SOB, persistent cough, coughing up blood, asthma or wheezing Gastrointestinal: Admits some fecal urgency, epigastric cramping, denies poor appetite, indigestion,trouble swallowing, diarrhea, constipation, nausea/vomitting, rectal bleeding or blood in stools. Musculoskeletal: Denies pain in joints, back pain, neck or shoulder pain, muscle cramping, movement of legs at night. Neurologic: Admits some numbness/pain in left leg, denies blackouts or loss of consciousness, headache, weakness or numbness in arms, tremor, worsening memory and concentration Genitourinary: Denies frequent urination, blood in urine Psychiatric: Admits stress and anxiety, denies changes in mood or behavior MEDICATIONS Current Outpatient Medications Medication Sig Dispense Refill ??? omeprazole (PRILOSEC) 20 mg Capsule, Delayed [...] No current facility-administered medications for this visit. 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 Marital status: , 3 children (one stepchild), 9 grandchildren Smoking: Never Alcohol: See HPI Other drug: None FAMILY HISTORY Negative except as noted below Medical problem Family member Medical Problem Family member Medical Problem Family member Alcohol drug Problem Father EtOH Kidney disease Mental illness Anemia or Blood Disease Liver disease Depression Diabetes Liver cancer Seizure High blood pressure Stroke Lung disease Heart disease Clotting problems Colon Cancer High cholesterol Lots of family Immune disorders Other Cancer PHYSICAL EXAM Vitals: 04/05/19 1256 BP: 150/83 Pulse: 83 Weight: 75.4 kg (166 lb 3.2 oz) Height: 170.2 cm (5' 7) Body mass index is 26.03 kg/m??. Constitutional: Well appearing, appropriate, no acute distress Skin: Tanned complexion, no cyanosis, no palmar erythema, no jaundice, no spider angiomata Head: Normocephalic, PERRLA, sclerae anicteric, oropharynx within normal limits CVS: RRR, normal S1/S2, no murmurs, rubs, or gallops, equal pulses in bilateral upper and lower extremities Lungs: Clear to auscultation bilaterally, no wheezes, rales, or rhonci Abdomen: Nontender, nondistended, no hepatosplenomegaly, no masses, no fluid wave, no umbilical hernia, no caput medussae, positive bowel sounds Neurologic: Alert and oriented x 3, no asterixis or tremor Extremities: No edema, no clubbing, no muscle wasting, no joint swelling RESULTS Recent Results (from the past 24 hour(s)) IgA Result Value Ref Range IgA 195 70 - 400 mg/dL A1AT Serum Concentration Result Value Ref Range A1AT 97 90 - 200 mg/dL Prothrombin Time Result Value Ref Range PT 12.0 9.4 - 12.5 sec INR 1.0 Ferritin Result Value Ref Range Ferritin 153 30 - 400 ng/mL Iron and TIBC Result Value Ref Range Iron 100 30 - 150 mcg/dL TIBC 390 250 - 450 mcg/dL Iron Saturation 26 20 - 50 % IgM Result Value Ref Range IgM 133 40 - 230 mg/dL IgG Result Value Ref Range IgG 1,086 700 - 1,600 mg/dL Hepatitis B Surface Antigen Result Value Ref Range HepB Surface Ag Negative Negative Lipid Panel Result Value Ref Range Chol, Total 263 mg/dL Triglycerides 274 mg/dL HDL 35 mg/dL LDL Cholesterol 173 mg/dL Chol/HDL Ratio 7.5 ratio Lipid Interpretation See Note TSH Result Value Ref Range TSH 1.94 0.27 - 4.20 mcIU/mL Hemoglobin A1c Result Value Ref Range Hemoglobin A1C 6.6 (H) 4.3 - 5.6 % Est Avg Gluc 143 mg/dL Comprehensive metabolic panel (non-fasting) Result Value Ref Range Glucose Lvl 98 65 - 199 mg/dL BUN 14 8 - 18 mg/dL Creatinine 0.73 0.70 - 1.20 mg/dL Sodium 137 135 - 145 mmol/L Potassium 3.8 3.5 - 5.0 mmol/L Chloride 95 (L) 98 - 107 mmol/L CO2 27 22 - 31 mmol/L Anion Gap 15 5 - 15 mmol/L Calcium 10.1 8.5 - 10.5 mg/dL Total Protein 8.0 6.1 - 8.0 gm/dL Albumin 4.9 3.2 - 5.2 gm/dL AST 27 0 - 30 unit/L ALT 39 (H) 0 - 30 unit/L Alk Phos 54 40 - 104 unit/L Total Bilirubin 0.7 0.2 - 1.3 mg/dL eGFR 85 >=60 mL/min/1.73 m?? eGFR 99 >=60 mL/min/1.73 m?? Hemogram Result Value Ref Range WBC 7.1 4.0 - 9.5 x10(3)/mcL RBC 4.18 4.00 - 5.21 x10(6)/mcL Hemoglobin 12.6 11.7 - 15.5 gm/dL Hematocrit 37.9 35.7 - 45.8 % MCV 90.7 82.6 - 94.4 fL MCH 30.1 27.1 - 32.0 pg MCHC 33.2 31.7 - 35.0 gm/dL Platelets 213 145 - 357 x10(3)/mcL RDWSD 38.9 37.0 - 46.0 fL RDWCV 11.8 11.5 - 14.1 % MPV 10.1 7.6 - 12.9 fL nRBC % Auto 0.0 % nRBC Abs Auto 0.000 0.000 - 0.000 x10(3)/mcL Differential, Automated Result Value Ref Range Neutrophils % 50.7 % Neutr Abs (ANC) 3.60 1.70 - 6.10 x10(3)/mcL Lymphocytes % 39.9 % Lymphocytes Abs 2.8 0.9 - 3.2 x10(3)/mcL Monocytes % 7.0 % Monocyte Abs 0.5 0.3 - 0.9 x10(3)/mcL Eosinophils % 1.0 % Eosinophils Abs 0.1 0.0 - 0.4 x10(3)/mcL Basophils % 1.1 % Basophils Abs 0.1 0.0 - 0.1 x10(3)/mcL Immature Gran % 0.30 % Cely Gran Abs 0.02 0.00 - 0.04 x10(3)/mcL FIB-4 = 1.36 Non-DH Laboratory: 12/02/18 @ [facility] Center: 09/30/18: 08/20/18: 01/29/18: Imagin10/01/17 @ [facility]: Fibroscan Results Today: Median kPa: 6.3 Mean IQR: 16% (goal is <30 %) Number of valid measurements: 10 (10 required) Number of invalid measurements: 0 Predicted fibrosis stage: F0-F1 CAP (dB/m): 338 ASSESSMENT/PLAN Mai Donato is a 68 y.o. female with type 2 diabetes, hyperlipidemia, hypertension, and GERD who was noted to have significantly elevated transaminases for at least the last 1.5 years, and hepatic steatosis noted on ultrasound in September 2017. She had been evaluated previously by a local casing worker and was advised to lose weight, decrease alcohol, and discontinue her statin for cholesterol treatment. She did make good progress with increasing activity and changes in her diet and has lost approximately 10 pounds in the last year. Diabetes appears to be under good control and on repeating A1c today it is 6.6%, down from 7.4% in November. TSH today is normal and it is unclear if she has obstructive sleep apnea for other metabolic risk factors for fatty liver disease. She drinks a mild amount of alcohol, though does state that she was drinking daily for about 2 years recently. I believe that given her metabolic risk factors that this is more likely nonalcoholic fatty liver disease (NAFLD) orperhaps nonalcoholic steatohepatitis (ZUNIGA), however the latter is a histologic diagnosis. Transaminases today are remarkably improved, close to normal limits. There was improvement between September and November this past year as well, which may be a result of her lifestyle changes. Similarly, lipid panel today has also improved especially with the triglycerides, though she is still without medical treatment. I discussed with her that I believe it is important to treat her hyperlipidemia as clinically indicated as this is a major risk factor for fatty liver disease. Statins are usually safe to use in the setting of any liver disease. I suggested that she discuss with her PCP about possibly restarting a statin at a low dose, and to also consider additional OTC therapies such as omega-3 fattyacids or fish oil. Also reassured that Fibroscan today suggests minimal, if any, fibrosis. She does have high-grade steatosis however which supports ultrasound findings. A FIB-4 today's calculated at 1.36, which is a lowscore and suggests approximately 90% negative predictive value for advanced fibrosis. She shows no certain concerning signs or symptoms for advanced liver disease as well. Fatty liver disease is one of the most common causes of liver disease in the [place]. It is regarded as the liver manifestation of metabolic syndrome, associated with cardiovascular disease and predisposition to developing diabetes. The goals of treatment are treating or managing risk factors. We discussed the importance of lifestyle interventions and making healthy food choices as the backboneof treatment for this condition. We set realistic weight loss goals; goal is to focus on loosing 10-15% of total body weight over a year by incorporating regular exercise, lifestyle modifications, and healthy food choices including portion control. In addition I would recommend avoiding high fructose corn syrup and artifical sweeteners. Diet should be low in carbohydrates and high in protein, similarto a diabetic or Mediterranean diet. Given the severity of transaminases within the last year prior to today's consult, it would also be important to rule out other causes of this other than fatty liver. Hepatitis C was previously ruled out, and today she does not have active hepatitis B infection. Other labs thus far show normal IgG, IgA, and IgM concentrations, and normal alpha-1 antitrypsin. Pending labs include autoantibodies MARIA ELENA, ASMA, AMA, and TTG IgA to rule out celiac disease. Plan: -Await remaining lab results. -Diet and lifestyle changes as described above. Provided information on Mediterranean diet today. Avoid high fructose corn syrup. Black coffee 2 to 3 cups daily may be beneficial in preventing fibrosisformation. -There is likely no benefit from vitamin E supplementation given her diabetes history and cardiac risk factors. -No additional imaging needed at this time. -Recommend medical treatment of hyperlipidemia as clinically indicated. It is okay to start a low-dose statin. Consider addition of omega-3 fatty acids or fish oil. -Continue to treat other metabolic syndrome with tight diabetic control. Consider sleep study to evaluate for DYLAN. -Okay to continue other current medications. -Follow-up with primary care as needed/planned. -Hepatology follow-up likely in 6 months with repeat LFTs prior to her appointment. If labs are stable and/or continue to improve, then she may no longer need long-term hepatology follow-up. 55 of this 60 minute visit was in [id number] discussion regarding disease, prognosis and treatment. This is exclusive of the time spent performing the Fibroscan procedure. Tariq Lindsey PA-C Section of Gastroenterology [place] [address] Copy: VERONA Vargas documented in this encounter Procedure Notes Tariq Lindsey PA - 04/05/2019 1:00 PM EDTAssociated Order(s): FIBROSCAN Procedure(s): FIBROSCAN Pre-Procedure Diagnose(s): Fatty liver; Abnormal liver function tests [facility] Liver Fibrosis Assessment Report Indication: Fatty liver Performed by: FRANCO Collins Procedure: Vibration Controlled Transient Elastography (VCTE) or Fibroscan [place] Protocol: Patient's identity, procedure and site were verified, confirmatory pause performed. Discussed procedure including risks and potential complications. Questions answered. Patient verbalizes understanding and wishes to proceed with Fibroscan assessment. Patient was placed in the supine position with right arm in maximum abduction to allow optimal exposure of right lateral abdomen. Patient was briefly assessed. Testing was performed in the mid-axillarylocation. 50Hz Shear Wave pulses were applied and the resulting Shear Wave and Propagation Speed wasdetected with a 3.5MHz ultrasonic signal, using the Fibroscan probe. Skin to liver capsule distance and liver parenchyma were accessed during the entire examination with the Fibroscan probe. Patient was instructed to breathe normally and abstain from sudden movements during the procedure. At least tenSheer Waves were produced; individual measurements of each Shear Wave were calculated. Patient tolerated the procedure well with no complications. Fibroscan Results: Median kPa: 6.3 Mean IQR: 16% (goal is <30 %) Number of valid measurements: 10 (10 required) Number of invalid measurements: 0 Predicted fibrosis stage: F0-F1 CAP (dB/m): 338 Estimated steatosis grade: 3/3 % hepatocytes affected: > 66% Interpretation: Based on this Fibroscan result, history, clinical examination and review of laboratory and radiological data, this patient likely has stage 0-1 liver fibrosis and grade 3 steatosis affecting greater than 66% of hepatocytes. documented in this encounter Plan of Treatment Not on filedocumented as of this encounter Procedures Procedure Name Priority Date/Time Associated Comments Diagnosis HEMOGRAM Routine 04/05/2019 2:35 PM Fatty liver Results for this EDT Abnormal liver procedure are in function tests the results section. DIFFERENTIAL, Routine 04/05/2019 2:35 PM Fatty liver Results for this AUTOMATED EDT Abnormal liver procedure are in function tests the results section. IRON AND TIBC Routine 04/05/2019 2:35 PM Fatty liver Results for this EDT procedure are i n the results section. [id number] Routine 04/05/2019 2:35 PM Abnormal liver Results for this EDT function tests procedure are in the results section. MITOCHONDRIAL Routine 04/05/2019 2:35 PM Abnormal liver Result s for this ANTIBODY, M2 EDT function tests procedure are in the results section. TISSUE Routine 04/05/2019 2:35 PM Abnormal liver Results for this TRANSGLUTAMINASE, IGA EDT function tests proc edure are in the results section. SMOOTH MUSCLE ANTIBODY Routine 04/05/2019 2:35 PM Abnormal chuck er Results for this EDT function tests procedure are in the results section. HEPATITIS B SURFACE Routine 04/05/2019 2:35 PM Fatty chuck er Results for this ANTIGEN EDT Abnormal liver procedure are in function tests the results section. PROTHROMBIN TIME Routine 04/05/2019 2:35 PM Fatty liver Results for this EDT Abnormal liver procedure are in function tests the results section. CBC (WITH DIFF) Routine 04/05/2019 2:35 PM Fatty liver EDT Abnormal liver function tests MARIA ELENA Routine 04/05/2019 2:35 PM Abnormal liver Results for this EDT function tests procedure are in the results section. TSH Routine 04/05/2019 2:35 PM Fatty liver Results for this EDT Abnormal liver procedure are in function tests the results Type 2 diabetes section. mellitus with other specified complication, without long-term current use of insulin HEMOGLOBIN A1C Routine 04/05/2019 2:35 PM Type 2 diabetes Resu lts for this EDT mellitus with other procedur e are in specified the results complication, section. without long-term current use of insulin IGA Routine 04/05/2019 2:35 PM Abnormal liver Results for this EDT function tests procedure are in the results section. IGM Routine 04/05/2019 2:35 PM Abnormal liver Results for this EDT function tests procedure are in the results section. IGG Routine 04/05/2019 2:35 PM Abnormal liver Results for this EDT function tests procedure are in the results section. FERRITIN Routine 04/05/2019 2:35 PM Fatty liver Results f or this EDT procedure are i n the results section. LIPID PANEL (REFLEX Routine 04/05/2019 2:35 PM Fatty chuck er Results for this DIRECT LDL) EDT Type 2 diabetes procedure ar e in mellitus with other the resu lts specified section. complication, without long-term current use of insulin COMPREHENSIVE Routine 04/05/2019 2:35 PM Fatty liver Results for this METABOLIC PANEL EDT Abnormal liver procedure are in (NON-FASTING) function tests the results Type 2 diabetes section. mellitus with other specified complication, without long-term current use of insulin [id number] Routine 04/05/2019 1:00 PM Fatty liver Results for this EDT Abnormal liver procedure are in function tests the results section. documented in this encounter Results Differential, Automated (04/05/2019 2:35 PM EDT) athologist Signature Neutrophils % 50.7 % [facility] Neutr Abs (ANC) 3.60 1.70 - [facility] 6.10 [facility] x10(3)/[facility] LABORATORY Lymphocytes % 39.9 % [facility] Lymphocytes Abs 2.8 0.9 - 3.2 [facility] x10(3)/[facility] LABORATORY Monocytes % 7.0 % [facility] Monocyte Abs 0.5 0.3 - 0.9 [facility] x10(3)/[facility] LABORATORY Eosinophils % 1.0 % [facility] Eosinophils Abs 0.1 0.0 - 0.4 [facility] x10(3)/[facility] LABORATORY Basophils % 1.1 % [facility] Basophils Abs 0.1 0.0 - 0.1 [facility] x10(3)/[facility] LABORATORY Immature Gran % 0.30 % [facility] Comment: Immature granulocytes(IG's)percentage an d absolute count will include metamyelocytes, myelocytes, and promyelo cytes. Blood smears from CBCs yielding IG's will be scanned manually for concor dance. If this scan disagrees with the automated IG or if promyelocytes are not ed, a manual differential will be performed. Cely Gran Abs 0.02 0.00 - 0.04 x10(3)/[facility] MAR Y [facility] Specimen Anatomical Collection Method Collection Time Receive d Time (Source) Location / / Volume Laterality Blood specimen 04/05/2019 2:35 PM 019 2:41 (specimen) EDT PM EDT Resulting Agency Comment Spec In Lab Tariq GAMEZ HEMATOLOGY ORDERABLES Performing Organization Address City/State/[place] [address] Hemogram (04/05/2019 2:35 PM EDT) P athologist Signature WBC 7.1 4.0 - 9.5 [facility] RBC 4.18 4.00 - SON[place] JANY 5.21 [facility] x10(6)/[facility] LABORATORY Hemoglobin 12.6 11.7 - [place] JANY 15.5 gm/dL [facility] Hematocrit 37.9 35.7 - [facility] JANY 45.8 % [facility] MCV 90.7 82.6 - [facility] 94.4 [facility] LAB[facility] MCH 30.1 27.1 - [facility] 32.0 pg [facility] MCHC 33.2 31.7 - [place] JANY 35.0 gm/dL [facility] Platelets 213 145 - 357 [facility] x10(3)/[facility] LABORATORY RDWSD 38.9 37.0 - [facility] JANY 46.0 [facility] LABORATORY RDWCV 11.8 11.5 - [facility] JANY 14.1 % [facility] MPV 10.1 7.6 - 12.9 [facility] nRBC % Auto 0.0 % [facility] nRBC Abs Auto 0.000 0.000 - [facility] JANY 0.000 [facility] x10(3)/[facility] LABORATORY Specimen Anatomical Collection Method Collection Time Receive d Time (Source) Location / / Volume Laterality Blood specimen 04/05/2019 2:35 PM 019 2:41 (specimen) EDT PM EDT Resulting Agency Comment Spec In Lab Tariq GAMEZ HEMATOLOGY ORDERABLES Performing Organization Address City/State/ZIP Code [place] [address] IgA (04/05/2019 2:35 PM EDT) athologist Signature IgA 195 70 - 400 SONIA GARCIAJANY mg/dL [facility]ORY Specimen Anatomical Collection Method Collection Time Receive d Time (Source) Location / / Volume Laterality Blood specimen 04/05/2019 2:35 PM 019 2:41 (specimen) EDT PM EDT Resulting Agency Comment Spec In Lab Amy Santamaria MD IMMUNOLOGY ORDERABLES Performing Organization Address City/State/[place] [address] Tissue transglutaminase, IgA (04/05/2019 2:35 PM EDT) athologist Signature TTG IgA Ab <1.2 <4.0 SONIA GREENECOCK (Negative) [facility] unit/[facility] LABORATORY Comment: Test Performed by: [facility] [address] [place], [place] [address] Specimen Anatomical Collection Method Collection Time Receive d Time (Source) Location / / Volume Laterality Blood specimen 04/05/2019 2:35 PM 019 4:01 (specimen) EDT PM EDT Resulting Agency Comment Spec In Lab Amy Santamaria MD IMMUNOLOGY ORDERABLES Performing Organization Address City/[facility]/ZIP Code Phon e Number [address] A1AT Serum Concentration (04/05/2019 2:35 PM EDT) athologist Signature A1AT 97 90 - 200 SONIA GARCIAJANY mg/dL [facility] LABORATORY Specimen Anatomical Collection Method Collection Time Receive d Time (Source) Location / / Volume Laterality Blood specimen 04/05/2019 2:35 PM 019 2:41 (specimen) EDT PM EDT Resulting Agency Comment Spec In Lab Amy Santamaria MD CHEMISTRY ORDERABLES Performing Organization Address City/[facility]/[place] [address] Prothrombin Time (04/05/2019 2:35 PM EDT) athologist Signature PT 12.0 9.4 - 12.5 [facility] LABORATORY INR 1.0 [facility] LABORATORY Comment: An INR <2.0 indicates adequate procoagul ant activity for hemostasis in most patients without underlying bleeding dis orders, though the INR may not adequately reflect hemostatic capacity i n patients with liver disease and synthetic impairment. The recommended ta rget INR range for therapeutic anticoagulation is 2.0 ? 3.0 for most applications, though lower and higher ranges may be appropriate depending on c linical circumstances. Specimen Anatomical Collection Method Collection Time Receive d Time (Source) Location / / Volume Laterality Blood specimen 04/05/2019 2:35 PM 019 2:41 (specimen) EDT PM EDT Resulting Agency Comment Spec In Lab Amy Santamaria MD HEMATOLOGY ORDERABLES Performing Organization Address City/State/[place] [address] Ferritin (04/05/2019 2:35 PM EDT) athologist Signature Ferritin 153 30 - 400 [facility] ng[facility]mL [facility] LABORATORY Comment: Pediatric reference ranges not verified at [facility], interpret with caution. Reference ranges for females greater hilton n 50 years of age approach values for men, i.e., 30-400 ng/mL. Specimen Anatomical Collection Method Collection Time Receive d Time (Source) Location / / Volume Laterality Blood specimen 04/05/2019 2:35 PM 019 2:41 (specimen) EDT PM EDT Resulting Agency Comment Spec In Lab Amy Santamaria MD CHEMISTRY ORDERABLES Performing Organization Address City/State/ZIP Code Phon e Number [address] Iron and TIBC (04/05/2019 2:35 PM EDT) athologist Signature Iron 100 30 - 150 [facility] mcg/dL [facility] LABORATORY TIBC 390 250 - 450 [facility] mcg/dL [facility] LABORATORY Iron Saturation 26 20 - 50 % [facility] LABORATORY Specimen Anatomical Collection Method Collection Time Receive d Time (Source) Location / / Volume Laterality Blood specimen 04/05/2019 2:35 PM 019 2:41 (specimen) EDT PM EDT Resulting Agency Comment Spec In Lab Amy Santamaria MD CHEMISTRY ORDERABLES Performing Organization Address City/[facility]/ZIP Code Phon e Number [address] IgM (04/05/2019 2:35 PM EDT) athologist Signature IgM 133 40 - 230 SONIA GREENECOCK mg/dL [facility] LABORATORY Specimen Anatomical Collection Method Collection Time Receive d Time (Source) Location / / Volume Laterality Blood specimen 04/05/2019 2:35 PM 019 2:41 (specimen) EDT PM EDT Resulting Agency Comment Spec In Lab Amy Santamaria MD IMMUNOLOGY ORDERABLES Performing Organization Address City/[facility]/ZIP Code Phon e Number [address] IgG (04/05/2019 2:35 PM EDT) athologist Signature IgG 1,086 700 - 1,600 [facility] mg/dL [facility] LABORATORY Comment: Pediatric Reference Intervals obtained f rom the Caliper Reference Interval project. http://www.[employer].ca/caliperp roject/index.html Specimen Anatomical Collection Method Collection Time Receive d Time (Source) Location / / Volume Laterality Blood specimen 04/05/2019 2:35 PM 019 2:41 (specimen) EDT PM EDT Resulting Agency Comment Spec In Lab Amy Santamaria MD IMMUNOLOGY ORDERABLES Performing Organization Address City/[facility]/ZIP Code Phon e Number [address] Mitochondrial Antibody, M2 (04/05/2019 2:35 PM EDT) athologist Signature Mitochon Ab <0.1 <0.1 SONIA CARMICHAEL (Negative) [facility] LABORATORY Comment: Test Performed by: [facility] [address] [place], [place] [address] Specimen Anatomical Collection Method Collection Time Receive d Time (Source) Location / / Volume Laterality Blood specimen 04/05/2019 2:35 PM 019 4:01 (specimen) EDT PM EDT Resulting Agency Comment Spec In Lab Amy Santamaria MD IMMUNOLOGY ORDERABLES Performing Organization Address City/[facility]/ZIP Code Phon e Number [address] Smooth Muscle Antibody (04/05/2019 2:35 PM EDT) P athologist Signature Sm Muscle Ab Negative Negative [facility] LABORATORY Comment: ADDITIONAL INFORMATIO N This test was developed and its performa nce characteristics determined by [facility] in a manner co nsistent with CLIA requirements. This test has not been bella ared or approved by the U.S. Food and Drug Administration. Test Performed by: [facility] [address] [id number] Specimen Anatomical Collection Method Collection Time Receive d Time (Source) Location / / Volume Laterality Blood specimen 04/05/2019 2:35 PM 019 4:01 (specimen) EDT PM EDT Resulting Agency Comment Spec In Lab Amy Santamaria MD IMMUNOLOGY ORDERABLES Performing Organization Address [facility]/ZIP Code Phon e Number [address] MARIA ELENA (LEB/CGP) (04/05/2019 2:35 PM EDT) P athologist Signature MARIA ELENA Neg Neg [facility] LABORATORY Specimen Anatomical Collection Method Collection Time Receive d Time (Source) Location / / Volume Laterality Blood specimen 04/05/2019 2:35 PM 019 7:28 (specimen) EDT AM EDT Resulting Agency Comment Spec In Lab Amy Santamaria MD IMMUNOLOGY ORDERABLES Performing Organization Address City/[facility]/ZIP [facility] [place] [address] Hepatitis B Surface Antigen (04/05/2019 2:35 PM EDT) Analysis Performed At Patho logist Time Signature HepB Surface Negative Negative [facility] LABORATORY Specimen Anatomical Collection Method Collection Time Receive d Time (Source) Location / / Volume Laterality Blood specimen 04/05/2019 2:35 PM 019 2:41 (specimen) EDT PM EDT Resulting Agency Comment Spec In Lab Amy Santamaria MD CHEMISTRY ORDERABLES Performing Organization Address City/State/[place] [address] Lipid Panel (04/05/2019 2:35 PM EDT) athologist Signature Chol, Total 263 mg/dL [facility] LABORATORY Comment: Lower Risk: <200 mg/dL Average Risk: 200-239 mg/dL Higher Risk: >xy=808 mg/dL Triglycerides 274 mg/dL [facility] LABORATORY Comment: Average Risk/Lower Risk: <150 mg/dL Borderline High Risk: 150-199 mg/dL High Risk: 200-499 mg/dL Very High Risk: >dk=468 mg/dL HDL 35 mg/dL [facility] LABORATORY Comment: Males: ?? Higher Risk: <40 mg/dL Females: ?? HIgher Risk: <50 mg/dL LDL Cholesterol 173 mg/dL [facility] LABORATORY Comment: Lowest Risk: <100 mg/dL Lower Risk: 100-129 mg/dL Borderline High Risk: 130-159 mg/dL High Risk: 160-189 mg/dL Very High Risk: >xo=287 mg/dL Chol/HDL Ratio 7.5 ratio [facility] LABORATORY Lipid Interpretation See Note [facility] LABORATORY Comment: Lipid management should be guided by a p atient? s ASCVD risk, goals and preferences. ACC/AHA Guidelines recommend high intens ity statin if clinical ASCVD or LDL greater than or equal to 190 mg/dL. http://tinyurl.com/DSM-KNZ-Rkrjjiyof Adults aged 40-75 with LDL 70-189 mg/dL should have their 10 year ASCVD risk estimated with the ACC/AHA ASCVD risk es timator http://tools.acc.org/QADDX-Ixtz-Xewnmpry r/ Statin should be discussed if risk great er than or equal to 7.5% in non-diabetics. With diabetes, moderate i ntensity statin is recommended if risk less than 7.5%, high intensity if risk g reater than or equal to 7.5%. Annual lipid monitoring on statins is no t necessary. Evaluate secondary causes of Triglycerid es greater than 500 mg/dL or LDL greater than 190 mg/dL: See table 6 of A CC/AHA Guideline. Lifestyle modification is a critical com ponent of ASCVD risk reduction. Specimen Anatomical Collection Method Collection Time Receive d Time (Source) Location / / Volume Laterality Blood specimen 04/05/2019 2:35 PM 019 2:41 (specimen) EDT PM EDT Resulting Agency Comment Spec In Lab Amy Santamaria MD CHEMISTRY ORDERABLES Performing Organization Address City/[facility]/ZIP Code Phon e Number [address] TSH (04/05/2019 2:35 PM EDT) P athologist Signature TSH 1.94 0.27 - 4.20 [facility] mcIU/mL [facility] LABORATORY Specimen Anatomical Collection Method Collection Time Receive d Time (Source) Location / / Volume Laterality Blood specimen 04/05/2019 2:35 PM 019 2:41 (specimen) EDT PM EDT Resulting Agency Comment Spec In Lab Amy Santamaria MD CHEMISTRY ORDERABLES Performing Organization Address City/State/[place] [address] (ABNORMAL) Hemoglobin A1c (04/05/2019 2:35 PM EDT) Analysis Performed At Patho logist Time Signature Hemoglobin A1C 6.6 (H) 4.3 - 5.6 [facility] LABORATORY Comment: Reference Range: 4.3 - 5.6% 5.7 - 6.4% - Increased Risk of Developin g Diabetes Mellitus >= 6.5% - Consistent with diagnosis of D iabetes Mellitus In the absence of hyperglycemia (i.e. pl asma glucose > 200 mg/dL) or classic symptoms of hyperglycemia a repeat measu rement of HbA1c should be performed on a separate sample to confirm the diagnos is. Diagnosis and Classification of Diabetes Mellitus, Diabetes Care 2013; 36: Suppl. 1, S67-74 Est Avg Gluc 143 mg/dL [facility] LABORATORY Comment: eAG equivalents for HbA1c percentages: HbA1c(%) ?eAG(mg/dL) 6.0 ?126 6.5 ?140 7.0 ?154 7.5 ?169 8.0 ?183 8.5 ?197 9.0 ?212 9.5 ?226 10.0 ? 240 Limitations: The eAG calculation has not been validated on women, individuals below 18 years old and above 70 years old, and individuals with hemoglobinopathies. Additional resources are available on [facility] ADA website. Isrrael GILES, Ulises J, Dar R, et al. ??Tr anslating the A1C assay into estimated average glucose values. ??Diabetes Care 2008:31(8):0755-1377. Specimen Anatomical Collection Method Collection Time Receive d Time (Source) Location / / Volume Laterality Blood specimen 04/05/2019 2:35 PM 019 2:41 (specimen) EDT PM EDT Resulting Agency Comment Spec In Lab Amy Santamaria MD CHEMISTRY ORDERABLES Performing Organization Address City/State/ZIP Code Phon e Number [facility] [place] [address] (ABNORMAL) Comprehensive metabolic panel (non-fasting) (04/05/2019 2:35 PM EDT) P athologist Signature Glucose Lvl 98 65 - 199 [facility]dL [facility] LABORATORY Comment: Diabetes: >=200 mg/dL plus symp toms BUN 14 8 - 18 mg/dL [facility] LABORATORY Creatinine 0.73 0.70 - 1.20 mg/dL [facility] LABORATORY Sodium 137 135 - 145 mmol/L [facility] LABORATORY Potassium 3.8 3.5 - 5.0 mmol/L [facility] LABORATORY Comment: Please note: ??Patients with WBC >100,00 0 may have falsely elevated Potassium levels. ??For accurate Potassium quantif ication in these patients send serum separator tube (gold top) for subsequent determinations. ??Contact the Clinical Chemistry Laboratory if there are any qu estions. Chloride 95 (L) 98 - 107 mmol/L [facility] LABORATORY CO2 27 22 - 31 mmol/L [facility] LABORATORY Anion Gap 15 5 - 15 mmol/L [facility] LABORATORY Calcium 10.1 8.5 - 10.5 mg/dL [facility] LABORATORY Total Protein 8.0 6.1 - 8.0 gm/dL [facility] LABORATORY Albumin 4.9 3.2 - 5.2 gm/dL [facility] LABORATORY AST 27 0 - 30 unit/L [facility] LABORATORY ALT 39 (H) 0 - 30 unit/L [facility] LABORATORY Alk Phos 54 40 - 104 unit/L [facility] LABORATORY Total Bilirubin 0.7 0.2 - 1.3 mg/dL [facility] LABORATORY Estimated GFR 85 >=60 mL/min/1.73 m?? [facility] LABORATORY Comment: The eGFR was calculated using the CKD-EP I equation. As with all creatinine based estimates of kidney function, eGFR values calculated with the CKD-EPI equation are not accurate in patients wi th acute kidney failure, extremes of body mass or the acutely ill. http://[employer]/DHMCnkf eGFR 99 >=60 mL/min/1.73 m?? [facility] LABORATORY Comment: The eGFR was calculated using the CKD-EP I equation. As with all creatinine based estimates of kidney function, eGFR values calculated with the CKD-EPI equation are not accurate in patients wi th acute kidney failure, extremes of body mass or the acutely ill. http://[employer]/DHMCnkf Specimen Anatomical Collection Method Collection Time Receive d Time (Source) Location / / Volume Laterality Blood specimen 04/05/2019 2:35 PM 019 2:41 (specimen) EDT PM EDT Resulting Agency Comment Spec In Lab Amy Santamaria MD CHEMISTRY ORDERABLES Performing Organization Address City/State/[place] [address] [id number] (04/05/2019 1:00 PM EDT) Narrative Tariq Lindsey PA - 04/05/2019 1:00 PM EDT Tariq Lindsey PA ? 04/05/2019 ??9:09 PM [facility] Liver Fibrosis Asses sment Report Indication: ?? Fatty liver Performed by: ??FRANCO Collins Procedure: Vibration Controlled Transien t Elastography (VCTE) or Fibroscan [place] Protocol: Patient's identity, procedure and site were verified, confirmatory pause performed. Discussed procedure including risks and potential complicati ons. Questions answered. Patient verbalizes understanding and wis hes to proceed with Fibroscan assessment. Patient was placed in the supine positio n with right arm in maximum abduction to allow optimal expos ure of right lateral abdomen. Patient was briefly assessed. T esting was performed in the mid-axillary location. 50Hz Shear Wa ve pulses were applied and the resulting Shear Wave and Propaga tion Speed was detected with a 3.5MHz ultrasonic signal, using t he Fibroscan probe. Skin to liver capsule distance and liver pare nchyma were accessed during the entire examination with the F ibroscan probe. Patient was instructed to breathe normally and a bstain from sudden movements during the procedure. At least ten Sheer Waves were produced; individual measurements of eac h Shear Wave were calculated. Patient tolerated the proced ure well with no complications. Fibroscan Results: Median kPa: 6.3 Mean IQR: 16% (goal is <30 %) Number of valid measurements: 10 (10 req uired) Number of invalid measurements: 0 Predicted fibrosis stage: F0-F1 CAP (dB/m): 338 Estimated steatosis grade: 3/3 % hepatocytes affected: > 66% Interpretation: Based on this Fibroscan result, history, clinical examination and review of laboratory and radiological da ta, this patient likely has stage 0-1 liver fibrosis and grade 3 steatosis affecting greater than 66% of hepatocytes. Amy Santamaria MD PROCEDURE/MINOR SURGICAL ORD ERABLES documented in this encounter Visit Diagnoses Diagnosis Fatty liver - Primary Other chronic nonalcoholic liver disease Abnormal liver function tests Other abnormal blood chemistry Mixed hyperlipidemia Type 2 diabetes mellitus with other spec ified complication, without long-term current use of insulin documented in this encounter Care Teams Underwater Trapper Relationship Specialty Start Date End Date Maureen Wang APRN PCP - General 03/01/15 [address] [place] [address] documented as of this encounter
--- OUTSIDE RECORDS SUMMARY | 2022-05-02 00:07 | XMS_ITS | Encounter Summary ---
:1950 Author Organization [facility] [address] Care Team Providers Name Role Phone Maureen Wang APRN Primary Care Provider [phone] Encounter Details Date Type Department Care Team Description 09/05/2020 Telephone Dermatology at [facility], [facility], [place] [address] [place] [address] ANT [facility] [place], [place] [address] (Wo rk) Social History Tobacco Use Types Packs/Day Years Used Date Never Smoker Smokeless Tobacco: Never Used Sex Assigned at Date Recorded Not on file documented as of this encounter Miscellaneous Notes Telephone Encounter - Lakeisha Almonte - 09/05/2020 1:21 PM EST Called patient to schedule annual skin exam w/[facility]. (-november?) Left [phone] for callback. documented in this encounter Plan of Treatment Not on filedocumented as of this encounter Visit Diagnoses Not on filedocumented in this encounter Care Teams Workday Director Relationship Specialty Start Date End Date Maureen Wang APRN PCP - General 03/01/15 [address] [place], [place] [address] documented as of this encounter
--- OUTSIDE RECORDS SUMMARY | 2022-05-02 00:07 | XMS_ITS | Encounter Summary ---
:1950 Author Organization [facility] Address [facility] [place] [address] Care Team Providers Name Role Phone Maureen Wang VERONA Primary Care Provider [phone] Reason for Visit Reason Comments Skin Cancer Examination Encounter Details Date Type Department Care Team Description 02/05/2021 Office Visit Dermatology at [facility] (squamous cell carcinoma); Julio Ambrose MD Ocular rosacea; [address] [facility] Lentigines; [place] [address] Seborrheic keratoses, inflamed [phone] [facility] [place], [place] [address] Social History Tobacco Use Types Packs/Day Years Used Date Never Smoker Smokeless Tobacco: Never Used Sex Assigned at Date Recorded Not on file documented as of this encounter Progress Notes Ciro Arenas MD - 02/05/2021 10:00 AM EDT Images from the original note were not included. DEPARTMENT OF DERMATOLOGY Medical Dermatology Clinic Provider: CIRO ARENAS MD Patient's preferred name Mai Patient's preferred pronouns She/Her/Hers Preferred contact method for results [] myDH [] Letter [x] Phone: Cell Detailed phone message OK? Y Are there any other people with whom we may discuss your care? PAST MEDICAL HISTORY Y/N Date, location, treatment Melanoma N Dysplastic nevi N SCC Y BCC Y AKs Blistering sunburns or tanning bed use Other relevant past medical history (i.e. eczema, psoriasis, birthmarks, immunosuppression) FAMILY HISTORY Y/N If yes, details Melanoma NMSC Other relevant family history SOCIAL HISTORY History of Present Illness: Mai Donato is a 70 y.o., established patient, last seen on 07/07/2019. Here today for a full skin exam with the following concerns: - lesion on left lower leg Medications: Reviewed in eD-H Allergies: Reviewed in eD-H Skin Examination: Full skin examination: Patient asked to undress to their comfort level. Verbalized that the provider???s preference is that the patient remove all clothing and that the provider will not examine areas patient elects to keep covered. Patient elects to keep underwear on and have the following examined: s calp, hair, head, face, ears, neck, chest, axillae, abdomen, back, buttocks, and upper and lower extremities. Genitalia and buttocks were not examined. Assessment/Plan # SCC - 1.2cm on left lower leg - Combined decision to proceed with shave ED&C DESTRUCTION by Desiccation and Curettage: Location: left lower leg Size: 1.2 cm. After anesthesia, the lesion was partially/removed shaved for histology and sent to pathology. This was followed by electrodesiccation and curettage x 3, in 4 directions, until base of lesion was firm, then cautery, and wound care. # Lentigines - Multiple, uniformly holcomb, slightly irregular, polygonal macules c/w lentigos on sun-exposed areas of skin - No treatment necessary # Ocular Rosacea - periocular - Discussed etiology - Discussed treatment to include oral Tetracycline - Reviewed risks and side effects - Patient will reach out if/when she would like to begin treatment - Knows risk of corneal scarring without treatment. # Inflamed Seborrheic Keratosis - Stuck-on, well-demarcated, pink warty papule eroded on the left medial calf - Combined decision to treat with cryotherapy Procedure Note: Procedure: Destruction of lesions with cryotherapy. Number: 1 Location: as above Discussed procedure and expectations including risks (including risk of hypopigmentation) and benefits. Verbal consent obtained. Frozen with LN2, 15-30 second thaw time, TWICE. There were no complications; the patient tolerated the procedure well. Post-procedure expectations and wound care were reviewed. Photo was taken and charted with patient's verbal consent. 02/05/2021 left lower leg Other items to document in the assessment/plan if relevant RTC: 1 year FSE Scribe attestation: MICHELLE Dennis has performed the documentation for this encounter in the presence of and acting as a scribe for CIRO ARENAS MD I performed the above scribed service and agree with the accuracy of the documentation in this encounter. Reviewed and signed by: CIRO ARENAS MD Dermatology [facility] documented in this encounter Plan of Treatment Not on filedocumented as of this encounter Procedures Procedure Name Priority Date/Time Associated Diagnosis Comme nts SURGICAL PATHOLOGY Routine 02/05/2021 1:06 PM Res ults for this REPORT EDT procedure are i n the results section. SPECIMEN TO Routine 02/05/2021 1:06 PM SCC (squamous cell Res ults for this PATHOLOGY EDT carcinoma) procedure are i n the results section. documented in this encounter Results Surgical Pathology Report (02/05/2021 1:06 PM EDT) Component Value Ref Test Analysis Performed At [facility] Method Time Signature Surgical [id number] ? Location: [facility] Report The signing pathologist has (i) examined the relevant preparation(s) for the MEMORIAL specimen(s) and (ii) rendered or confirmed the diagnosis(es) . HOSPITAL LABORATORY . ?Surgic al Pathology DIAGNOSIS Left lower leg, skin shave ?? 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 of Pathology, [place], [place] SPECIMEN(S) SUBMITTED A - left lower leg, skin shave ?? ED&C (1) CLINICAL INFORMATION SCC-1.2 cm SPECIMEN PROCESSING A - Labeled/Fixative: Patient demographics, formalin. Quantity/Size: ??Single, 1.0 x 0.9 x 0.4 cm. Tissue Description: Tome-white scaly crusted indurated nodul e. Sections/Processing: Inked, quadrisected and entirely submitted in 1 cassette lab eled A1. ??MLL Specimen (Source) Anatomical Collection Method Collection Time Re ceived Time Location / / Volume Laterality 02/05/2021 1:06 PM EDT Ciro Arenas MD PATHOLOGY/CYTOLOGY ORDERABLE S Performing Organization Address City/State/[place] [address] Specimen to Pathology (02/05/2021 1:06 PM EDT) Specimen Anatomical Collection Method Collection Time Receive d Time (Source) Location / / Volume Laterality AP Specimen 02/05/2021 1:06 PM 1:06 EDT PM EDT Narrative [facility] - 02/05/2021 1:06 PM EDT Specimen requisition ordered. ??Separate Pathology report to follow Ciro Arenas MD PATHOLOGY/CYTOLOGY ORDERABLE S Performing Organization Address City/State/[place] [address] documented in this encounter Visit Diagnoses Diagnosis SCC (squamous cell carcinoma) Squamous cell carcinoma of skin, site un specified Ocular rosacea Rosacea Lentigines Other dyschromia Seborrheic keratoses, inflamed documented in this encounter Care Teams Jd Edwards Consultant Relationship Specialty Start Date End Date Maureen Wang APRN PCP - General 03/01/15 [address] [place] [address] documented as of this encounter
--- OUTSIDE RECORDS SUMMARY | 2022-05-02 00:07 | XMS_ITS | Encounter Summary ---
:1950 Author Organization [facility] [place] [address] Care Team Providers Name Role Phone FelipeMaureen gordon VERONA Primary Care Provider [phone] Reason for Visit Reason Comments Skin Lesion Encounter Details Date Type Department Care Team Description 04/22/2018 Office Visit Dermatology at [facility] MD Arnol carcinoma [address] [place] [address] [facility] [place], [place] [address] Social History Tobacco Use Types Packs/Day Years Used Date Never Smoker Smokeless Tobacco: Never Used Sex Assigned at Date Recorded Not on file documented as of this encounter Patient Instructions Patient InstructionsClAlexandra abrams T - 04/22/2018 2:15 PM EDT Instructions for Mai: Treatment and Wound Care Instructions Your treatment today: You have had two Electrodessication and Curretages (ED&Cs) of your skin, which are a method to remove skin cancer. These wounds will heal without stitches. Allow 3-6 weeks for the wounds to heal. If bleeding occurs, hold firm pressure against the wounds for 15 minutes. If bleeding continues, calls the office or go to your local emergency room. Wound Care Instructions: You will need to keep the dressing placed over the wounds dry and intact for 24 hours. Afterwards, perform the following wound care daily: ?? Wash your hands before changing the dressings. ?? Remove the bandages and clean the areas with mild soap and water, then gently pat the areas dry. ?? Apply a small amount of Vaseline to the areas, then cover the wounds with a band-aid. Change yourdressings daily until the wounds are fully healed. ?? A small amount of yellow drainage is part of normal healing. The area might appear as a small depression with redness around the edge of the wounds. This is normal. ?? Please contact the office you you notice any of the following signs of infection: increased tenderness, pain, drainage, or redness that becomes hot or hard around the wounds. If you have further questions or concerns, please call the office at [phone]. If it is after 5PM, or a holiday or weekend, please call [phone] and ask for the Coach Tour Driver on-call. documented in this encounter Progress Notes Ciro Morrow MD - 04/22/2018 2:15 PM EDT Images from the original note were not included. Mai Donato 04/22/2018 [id number] Lesly Morrow MD ([id number]) Chief Problem: 1. Pigmented Lesion and Skin Cancer Examination 2. 3-Left??upper posterior calf-SCC,excision 3. 08/15/05-medial canthus-BCC History: 67 y.o. year old female. Established patient to me. No significant changes in health or medications since last visit.Patient presents to the clinic today for a lesion on her upper right thigh,it has been present for about 2 months and she tried wart remover on it and it irritated it and it is growing something in the middle now and she is concerned. Medications: reviewed All: reviewed Review of Systems: Feels well, no fatigue, no weight loss, no other skin concerns Current Outpatient Prescriptions on File Prior to Visit Medication Sig [...] well-appearing and in no noticeable distress. A focal skin exam was performed, including the right upper and lower leg. Specific findings: 1. Right thigh: 1 cm keratotic nodule [Sample A], ? SCC 2. Right le mm keratotic nodule [Sample B], ? SCC Photograph taken with permission of patient by Lilian Quiroz LPN Assessment/Diagnosis: 1. Squamous Cell Carcinoma, Keratoacanthoma type. 2. Squamous Cell Carcinoma Procedure: 1. Procedure: Shave Electrodesiccation and curettage Time of procedure: 2:45 pm Site: right thigh [Sample A] Post-curettage defect size: 1.0 cm Discussed indications and expectations including risks and benefits. Verbal consent obtained. Skin prep. Local anesthesia: 1% lidocaine with epinephrine. A sample of the lesion was removed by shave technique to the level of the dermis and submitted to Pathology. The entire lesion plus a small margin was treated by curettage and electrodesiccation x3. No complications. Wound dressed. Expectations (including discomfort management) and wound care reviewed. Procedure: Shave Electrodesiccation and curettage Time of procedure: 2:46 pm Site: right leg [Sample B] Post-curettage defect size: 5.0 mm Discussed indications and expectations including risks and benefits. Verbal consent obtained. Skin prep. Local anesthesia: 1% lidocaine with epinephrine. A sample of the lesion was removed by shave technique to the level of the dermis and submitted to Pathology. The entire lesion plus a small margin was treated by curettage and electrodesiccation x3. No complications. Wound dressed. Expectations (including discomfort management) and wound care reviewed. Treatment/Plan: Discussion - Spent over half of this visit discussing pathophysiology and the diagnosis, and counselling this patient on treatment options, expectations and follow-up plan. - Specifically discussed: 1. Sun avoidance re-emphasized, sunscreen, hats, clothing as always. 2. 2 SCC removals today, will send letter with biopsy report, both treated completely. Follow up: September 2018 for 1 year skin cancer exam, sooner if needed I am documenting this encounter acting as the scribe for and in the presence of Lilian Walsh LPN I performed the above scribed service and agree with the accuracy of the documentation in this encounter, MD Lesly Palacios M.D. Section of Dermatology documented in this encounter Plan of Treatment Not on filedocumented as of this encounter Procedures Procedure Name Priority Date/Time Associated Diagnosis Comme nts SURGICAL PATHOLOGY Routine 04/22/2018 3:21 PM Res ults for this REPORT EDT procedure are i n the results section. SPECIMEN TO Routine 04/22/2018 3:21 PM Squamous cell Results for this PATHOLOGY EDT carcinoma procedure are i n the results section. documented in this encounter Results Surgical Pathology Report (04/22/2018 3:21 PM EDT) Component Value Ref Test Analysis Performed At [facility] Method Time Signature Surgical [id number] ? Location: [facility] Pathology [place] Report The signing pathologist has (i) examined the relevant preparation(s) for the MEMORIAL specimen(s) and (ii) rendered or confirmed the diagnosis(es) . HOSPITAL LABORATORY . ?Surgic al Pathology DIAGNOSIS A - Skin, right thigh, shave biopsy ED ??&C: - Invasive squamous cell car cinoma, well differentiated with keratoacanthomatous features, transected B - Skin, right leg, shave biopsy ED ??&C: - Hyperkeratotic stratum cor neum with atypical parakeratosis, non diagnostic, see discussion Electronically signed by: ??Balbir Pinto MD Verified: ??04/29/2018 ?Dermatopathologist, Bone & Soft Tissue Pathologist Performed at: ??-[facility] [place] [facility] Dept. of Pathology, [address], [place], [place] DISCUSSION B - Sections show hypertroph ic stratum corneum with extensive parakeratosis overlying epidermis with somewhat exo phytic configuration broadly transected at the base. This is a very superficial b iopsy with no dermis for evaluation. Although the sampled epidermis appears relativel y bland, there is atypical parakeratosis, therefore a neoplastic keratinocytic pr oliferation cannot be excluded in this specimen. ? Multiple deeper sections have been examined. CLINICAL INFORMATION Specimen Submitted: A - Skin, right thigh, shave ED ?? & C (1) B - Skin, right leg, shave ED ?? & C (1) Clinical History and Diagnosis: A -1 cm keratotic nodule/SCC B -5 mm keratotic nodule/SCC SPECIMEN PROCESSING A - Labeled/Fixative: Right thigh, formalin. Quantity/Size: Single, 0.7 x 0.7 x 0.1 cm. Tissue Description: Shave of a white keratotic skin papule. Sections/Processing: Inked and trisected. (T1) B - Labeled/Fixative: Right leg, formalin. Quantity/Size: Single, 0.5 x 0.5 x 0.1 cm. Tissue Description: Shave of a white keratotic skin papule. Sections/Processing: Inked and bisected. (T1) ??evangelina Specimen (Source) Anatomical Collection Method Collection Time Re ceived Time Location / / Volume Laterality 04/22/2018 3:21 PM EDT Ciro Morrow MD PATHOLOGY/CYTOLOGY ORDERABLE S Performing Organization Address City/State/[place] [address] Specimen to Pathology (04/22/2018 3:21 PM EDT) Specimen Anatomical Collection Method Collection Time Receive d Time (Source) Location / / Volume Laterality AP Specimen 04/22/2018 3:21 PM 8 7:01 EDT PM EDT Narrative [facility] - 04/22/2018 7:01 PM EDT Specimen requisition ordered. ??Separate Pathology report to follow Resulting Agency Comment Spec In Lab Ciro Morrow MD PATHOLOGY/CYTOLOGY ORDERABLE S Performing Organization Address City/State/ZIP [place] [address] documented in this encounter Visit Diagnoses Diagnosis Squamous cell carcinoma Other malignant neoplasm without specifi cation of site documented in this encounter Care Teams Manager Club Relationship Specialty Start Date End Date Maureen Wang APRN PCP - General 03/01/15 [address] [place] [address] documented as of this encounter
--- OUTSIDE RECORDS SUMMARY | 2022-05-02 00:07 | XMS_ITS | Encounter Summary ---
:1950 Author Organization [facility] [place] [address] Care Team Providers Name Role Phone FelipeMaureen gordon VERONA Primary Care Provider [phone] Encounter Details Date Type Department Care Team Description 03/22[facility] borrheic keratosis, inflamed; Julio Ambrose MD History of SCC (squamous cell carcinoma) of skin; [address] [facility] Scar; [place] [address] Seborrheic keratosis [phone] [facility] [place], [place] [address] (Wo rk) Social History Tobacco Use Types Packs/Day Years Used Date Never Smoker Sex Assigned at Date Recorded Not on file documented as of this encounter Patient Instructions Patient InstructionsDenita Whitt LPN - 03/22/2015 2:26 PM EDT Inflamed Seborrheic Keratoses You have been diagnosed today with Inflamed Seborrheic Keratosis (ISK). These lesions are benign andhave no risk of turning into a skin cancer. Due to their bothersome nature, ISK's are usually treated. You were treated today with Liquid Nitrogen. This is the most common treatment for ISK's. Liquid nitrogen is extremely cold, and freezes the surface of the skin, causing the lesion to flake off. Treatment with liquid nitrogen can be uncomfortable, but discomfort should subside after a couple of hours.The area treated will look red and irritated, and it may blister up or turn dark, then fall off. This is normal! You do not need any special treatment for the area, but you may find cold compresses and/or a light application of Vaseline soothing. For best results, do not rub or pick at the healing lesion. Expected healing time is 3-4 weeks. Please contact the Dermatology clinic at [phone] if the lesion has not fully resolved after 6 weeks. documented in this encounter Progress Notes Ciro Morrow MD - 03/22/2015 1:46 PM EDT Mai Donato 03/22/2015 [id number] Lesly Morrow MD ([id number]) Chief Problem: 1. Pigmented Lesion and Skin Cancer Examination 2. 02/15/15: Skin of Calf, LEFT upper posterior, excision: squamous cell carcinoma, well differentiated, invasive. Margins negative for squamous cell carcinoma 3. 2007: basal cell carcinoma on the right eyelid, excision History: 64 y.o. year old female. Established patient to me. No significant changes in health or medications since last visit on 03/08/15. Patient presents to the clinic today for a full skin cancer examination. Patient has a lesion on her left forearm, it is raised and has been there for one year. Patient has treated at home with over the counter wart remover with no success. Medications: reviewed All: reviewed Review of Systems: Feels well, no fatigue, no weight loss, no other skin concerns No current outpatient prescriptions on file prior to visit. No current facility-administered medications on file prior to visit. Examination: Patient was alert, well-appearing and in no noticeable distress. A skin examination was performed. This includes the head, neck, face and scalp including behind the ears. The chest, abdomen, back, and axillae, as well as the arms, hands, palms, fingers. Legs, feet, toes and soles were also examined. Specific findings: 1. Inflamed Seborrheic Keratosis located on the left forearm x 1 2. Multiple Seborrheic Keratosis scattered on the trunk and extremities 3. Left upper posterior calf: well healing surgical scar, s/p squamous cell carcinoma excision, no clinical evidence of recurrence Assessment/Diagnosis: 1. Inflamed Seborrheic Keratosis x 1 2. Seborrheic Keratosis. Discussed benign nature of lesions and provided reassurance. No treatment necessary at this time. 3. Well-healing hypopigmented scar at site above, no signs of recurrence Procedure: 1. LN2 x 2 Inflamed Seborrheic Keratosis x 1 Treatment/Plan: Discussion - Spent over half of this visit discussing pathophysiology and the diagnosis, and counselling this patient on treatment options, expectations and follow-up plan. - Specifically discussed: 1. Sun avoidance re-emphasized, sunscreen, hats, clothing as always. Follow up: 1 year skin cancer exam, medical secretary teacher will call to schedule, or sooner if needed (2) I am documenting this encounter acting as the scribe for and in the presence of Dr. Morrow, [facility], Clinical Scribe. I performed the above scribed service and agree with the accuracy of the documentation in this encounter, MD Lesly Palacios M.D. Section of Dermatology documented in this encounter Plan of Treatment Not on filedocumented as of this encounter Visit Diagnoses Diagnosis Seborrheic keratosis, inflamed Inflamed seborrheic keratosis History of SCC (squamous cell carcinoma) of skin Personal history of other malignant neop lasm of skin Scar Scar condition and fibrosis of skin Seborrheic keratosis Other seborrheic keratosis documented in this encounter Care Teams Patient Relations Specialist Relationship Specialty Start Date End Date Maureen Wang, NUCLEAR DESIGN ENGINEER PCP - General 03/01/15 [address] [place] [address] documented as of this encounter
--- OUTSIDE RECORDS SUMMARY | 2022-05-02 00:07 | XMS_ITS | Encounter Summary ---
:1950 Author Organization [facility] [address] [place] [address] Care Team Providers Name Role Phone Maureen Wang APRN Primary Care Provider [phone] Reason for Visit Reason Comments Skin Check Skin Lesion Encounter Details Date Type Department Care Team Description 10/08/2017 Office Visit Dermatology at [facility] Salina Turner MD SK (seborrheic keratosis); [facility] Multiple benign nevi; [address] FINNEGAN (epidermal inclusion cyst); [place] [address] [facility] Nevus; [phone] RD-DERMATOLOGY Hordeolum externum of right lower eyelid [place], [place] [address] Social History Tobacco Use Types Packs/Day Years Used Date Never Smoker Smokeless Tobacco: Never Used Sex Assigned at Date Recorded Not on file documented as of this encounter Progress Notes Carolina Ag LPN - 10/08/2017 1:40 PM EST Entered in error. Ciro Peter MD - 10/08/2017 1:40 PM EST I directly supervised Dr. Phillip Turner during this office visit. Dr. Turner presented the history and physical exam to me. I then saw and examined this patient with Dr. Turner. We reviewed the history and pertinent details and I confirmed the physical findings. I agree with the details of the history and phy sical exam as documented in Dr. Turner's note. CIRO MORROW MD Staff Physician Ciro Peter MD - 10/08/2017 1:40 PM EST I directly supervised Dr. Phillip Turner during this office visit. Dr. Turner presented the history and physical exam to me. I then saw and examined this patient with Dr. Turner. We reviewed the history and pertinent details and I confirmed the physical findings. I agree with the details of the history and phy sical exam as documented in Dr. Turner's note. CIRO MORROW MD Staff Physician Ciro Peter MD - 10/08/2017 1:40 PM EST I directly supervised Dr. Phillip Turner during this office visit. Dr. Turner presented the history and physical exam to me. I then saw and examined this patient with Dr. Turner. We reviewed the history and pertinent details and I confirmed the physical findings. I agree with the details of the history and phy sical exam as documented in Dr. Turner's note. CIRO MORROW MD Staff Physician Phillip Pastrana MD - 10/08/2017 1:40 PM EST Images from the original note were not included. DERMATOLOGY - ESTABLISHED PATIENT FOLLOW-UP Date of service: 10/08/2017 Mai Donato : 1950, 67 y.o. Chief Complaint: Chief Complaint Patient presents with ??? Skin Check HPI: Mai Donato is a 67 y.o. female last seen by Lesly Morrow on 03/22/2015. Ms. Donato returns today for Full skin exam. Patient has no concerning lesions today, nothing new, changing, growing, bleeding on its own or painful. 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 hydrochlorothiazide (HYDRODIURIL) 25 mg Tablet Take 25 mg by mouth daily. No current facility-administered medications for this visit. Allergies: No Known Allergies Review of Systems: - General: Feels well. - Skin: No other skin concerns. Examination: - Constitutional: Patient was alert, well-appearing and in no noticeable distress. - Skin: Skin examination of the scalp, face, ears, neck, back, chest, abdomen, right and left upper extremities, right and left lower extremities, hands, feet, and buttocks was normal with the exception of the findings listed below. Genitalia not examined. Diagnosis/Skin findings/Assessment/Plan: 1. Seborrheic keratosis.-trunk and extremities- Multiple 0.4-0.6cm brown papules with waxy, stuck-onappearance. - Benign; reassurance provided 2. Benign appearing nevi with even pigmentation and well defined margins are noted-trunk and extremities: Multiple, 0.3-0.5cm, medium-brown, evenly-pigmented macules and papules. All with regular pigment pattern - Benign; reassurance provided 3. Epidermal inclusion cyst (EIC)- right upper back: Cystic subcutaneous nodule with central/lateralpunctum - Discussed removal; patient to call if she would like to proceed with excision 4. Nevus - right great toe at tip:3 mm medium brown macule with parallel furrow pattern on dermoscopy (see photo below) - Benign. Patient reassured - No biopsy warranted today - Will continue to monitor clinically 5. Possible dilated conjunctival gland/stye; probable mild occular Rosacea-right lower eye lid:2mm pink papule. Increased conjunctival hyperemia. - Etiology reviewed with the patient - Reassured of the benign nature - Discussed with patient that if this were to become bothersome to her we can treat the symptoms with oral medications - No treatment warranted today 6. History of basal cell carcinoma - medial canthus: well healed hypopigmented scar - No signs of recurrence - Continue to have skin exams yearly RTC: 1 year for a full skin exam, sooner if needed. Instructed to call with questions or concerns. The following photos were obtained with patient consent: Note initiated by Carolina Ag LPN and Zoe Jaramillo - I am documenting this encounteracting as the scribe for and in the presence of Phillip Turner MD. I performed the above scribed service and agree with the accuracy of the documentation in this encounter. Reviewed and signed by Phillip Turner MD Resident in Dermatology [facility] Patient seen and evaluated with staff car electronics installer: Lesly Morrow MD Section of Dermatology [facility] Ciro Morrow MD - 10/08/2017 1:40 PM EST Supervising. I directly supervised Dr. Phillip Turner during this office visit. Dr. Turner presented the history and physical exam to me. I then saw and examined this patient with Dr. Turner. We reviewed the history and pertinent details and I confirmed the physical findings. I agree with the details of the history and phy sical exam as documented in Dr. Turner's note. CIRO MORROW MD Staff Physician documented in this encounter Plan of Treatment Not on filedocumented as of this encounter Visit Diagnoses Diagnosis SK (seborrheic keratosis) Other seborrheic keratosis Multiple benign nevi Benign neoplasm of skin, site unspecifie d EIC (epidermal inclusion cyst) Sebaceous cyst Nevus Benign neoplasm of skin, site unspecifie d Hordeolum externum of right lower eyelid Hordeolum externum documented in this encounter Care Teams Food Stand Manager Relationship Specialty Start Date End Date Maureen Wang APRN PCP - General 03/01/15 [address] [place] [address] documented as of this encounter
--- OUTSIDE RECORDS SUMMARY | 2022-05-02 00:07 | XMS_ITS | Encounter Summary ---
:1950 Author Organization [facility] [place] [address] Care Team Providers Name Role Phone Alma Roberts APRN Primary Care Provider Reason for Visit Reason Comments Skin Check Encounter Details Date Type Department Care Team Description 10/06/2011 Office Visit Dermatology Andrew Cummins, History of squamous cell car cinoma (Primary Dx); [address] [facility] History of basal cell carcinoma [address] [place], [place] DERMATOLOGY [address] [place] [address] [phone] (Wo rk) Social History Tobacco Use Types Packs/Day Years Used Date Never Smoker Sex Assigned at Date Recorded Not on file documented as of this encounter Progress Notes Andrew Cummins MD - 10/06/2011 3:36 PM EST Problem: 1. Skin checkup. 2. History of BCCa, right medial canthus, 08/2005. 3. History of well differentiated squamous cell carcinoma, right medial calf, 11/2002. Mai follows up after last being seen in 2004. She would like to have another skin checkup. Physical examination again reveals a very fair skinned reddish brown haired woman with blue eyes and freckling who has had a moderate amount of solar actinic damage. She is [age]. She has no evidence of recurrent BCCa on the right medial canthus. She does have a 1cm soft fibroma/tag/seborrheic keratosis perhaps verruca on the right upper posterior thigh just below the panty line. She has an erythematous slightly scaling peeling patch on the right lower posterior calf concerning for possible Duarte's versus superficial BCCa versus actinic. Otherwise careful examination of the head, neck, chest, back, hands, arms, forearms, thighs and calves is benign. Assessment & Plan: Right posterior thigh lesion. a. After obtaining patient consent, the site was anesthetized and removed with shave biopsy. b. Submitted for pathologic analysis. c. Base was lightly electrodesiccated. d. Triple antibiotic ointment and Band-Aid placed. e. Wound care instructions and supplies given. Right posterior calf lesion. a. 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 b. LN2 x2 applied to site. c. RTC in one year for repeat check. Thereafter may be able to reduce frequency of visits. d. Continue sun avoidance precautions. History of previous nonmelanoma cutaneous malignancies. a. Patient reassured about lack of evidence of recurrence. Copy: Sukhdev Quintero MD Pathology Addendum per [facility] 10/11/11 : Soft Fibroma, right upper posterior thigh documented in this encounter Plan of Treatment Not on filedocumented as of this encounter Visit Diagnoses Diagnosis History of squamous cell carcinoma - Pam solares Personal history of malignant neoplasm o f other site History of basal cell carcinoma Personal history of other malignant neop lasm of skin documented in this encounter Care Teams Administrative Support Assoc Relationship Specialty Start Date End Date Alma Roberts APRN PCP - General 10/06/11 02/28/15 [address] [place] [address] documented as of this encounter
--- OUTSIDE RECORDS SUMMARY | 2022-05-02 00:07 | XMS_ITS | Encounter Summary ---
:1950 Author Organization [facility] [place] [address] Care Team Providers Name Role Phone Maureen Wang APRN Primary Care Provider [phone] Reason for Visit Reason Comments Procedure Encounter Details Date Type Department Care Team Description 07/07/2019 Clinical Support Dermatology at [facility] Fahad Morrow (epidermal Road MD Arnol inclusion cyst) [address] [facility] [address] [facility] [phone] [place] [address] Social History Tobacco Use Types Packs/Day Years Used Date Never Smoker Smokeless Tobacco: Never Used Sex Assigned at Date Recorded Not on file documented as of this encounter Progress Notes Lilian Quiroz LPN - 07/07/2019 1:00 PM EDT Pre Procedure Nurse Intake: Provider: MD Mai DIAS Sherron Donato is a 68 y.o. female presents to the clinic today for a procedure visit. Pre surgery Vital signs: There were no vitals filed for this visit. See vitals in chart Reviewed surgery expectations and after visit wound care instructions with patient. Patient verbalized understanding. Confirmed location with patient. Prepared patient for surgery. Lilian Quiroz LPN Ciro Morrow MD - 07/07/2019 1:00 PM EDT Pre-procedure examination. Supervising. documented in this encounter Plan of Treatment Not on filedocumented as of this encounter Visit Diagnoses Diagnosis EIC (epidermal inclusion cyst) Sebaceous cyst documented in this encounter Care Teams Revenue Coordinator Relationship Specialty Start Date End Date Maureen Wang, COMPLIANCE MONITOR PCP - General 03/01/15 [address] [place] [address] documented as of this encounter
--- OUTSIDE RECORDS SUMMARY | 2022-05-02 00:09 | XMS_ITS | Encounter Summary ---
:1950 Author Organization [facility] Address [address] [place] [address] Care Team Providers Name Role Phone Unavailable Primary Care Provider Unavailable Encounter Details Date Type Department Care Team Description 02/09/[address] [facility] Ethan Roberts FNP Laboratory Services - [address] [address] [place], [place] [id number] [phone] Social History Tobacco Use Types Packs/Day Years Used Date Never Assessed Sex Assigned at Date Recorded Not on file documented as of this encounter Plan of Treatment Not on filedocumented as of this encounter Procedures Procedure Name Priority Date/Time Associated Diagnosis Comme nts PAP TEST- RESULT Routine 02/09/2013 0:00 EDT Resu lts for this ONLY procedure are i n the results section. documented in this encounter Results PAP TEST- RESULT ONLY (02/09/2013 0:00 EDT) Pathology Report: CYTOPATHOLOGY REPORT [facility] Reports generated via electronic interface contain lor ginal data; however they are lacking the format of the original re port. Caution should be taken when reading/interpreting unfo rmatted reports. Name: ? NEREIDA GRANADOS ? Accession #: ? [id number] : ? 1950 (Age: 62) ??F ?Collect Date: ? 01/13 Location: ? [facility] ? Receive Date : ? 02/10/2013 Provider: ?ETHAN ROBERTS ARABIC TRANSLATOR Copy to: ? Specimen/Source: ?Pap Test, En docervix, ThinPrep Imaging System with manual evaluation Last Menstrual Period: ? DREW ? SPECIMEN ADEQUACY ? Satisfactory for Evaluation - assessment of transformation zone component not appl icable ( e.g. atrophy, vaginal sample, hysterectomy) GENERAL CATEGORIZATION ? Negative for Intraepithelial Lesion or Malignan cy ? Document reviewed and electronically signed by: ? MAURI Carcamo(ASCP) ? Report Date: ??02/16/2013 12:31 End of Report Specimen Performing Organization Address City/State/ZIP Code Phon e Number [facility] [address] [place] [address] SERVICES [facility] [address] [place] [address] documented in this encounter Visit Diagnoses Not on filedocumented in this encounter
--- OUTSIDE RECORDS SUMMARY | 2022-05-02 00:09 | XMS_ITS | Encounter Summary ---
:1950 Author Organization [facility] Address [address] [place] [address] Care Team Providers Name Role Phone Unavailable Primary Care Provider Unavailable Encounter Details Date Type Department Care Team Description 03/11/2001 Results Only [facility] - Ethan Gilliland FNP conversion [address] [place], [place] [id number] [place] [phone] (Wo rk) Social History Tobacco Use Types Packs/Day Years Used Date Never Assessed Sex Assigned at Date Recorded Not on file documented as of this encounter Plan of Treatment Not on filedocumented as of this encounter Procedures Procedure Name Priority Date/Time Associated Diagnosis Comme nts CYTOPATHOLOGY Routine 03/11/2001 0:00 EDT Results for this procedure are i n the results section . documented in this encounter Results CYTOPATHOLOGY (03/11/2001 0:00 EDT) Pathology Report: CYTOPATHOLOGY REPORT [facility] Reports generated via electronic interface contain lor ginal data; however they are lacking the format of the original re port. Caution should be taken when reading/interpreting unfo rmatted reports. Name: ? NEREIDA GRANADOS ? Accession #: ? [id number] : ? 1950 (Age: 50) ??F ?Collect Date: ? 02/13 Location: ? [facility] ? Receive Date : ? 03/15/2001 Provider: ?ETHAN LOZANO TAX ASSOCIATE ATTORNEY Copy to: ? Specimen/Source: ?ThinPrep Pap Test, Source Not Provided Last Menstrual Period: ? 03/02/01 ? SPECIMEN ADEQUACY ? Satisfactory for evaluation. GENERAL CATEGORIZATION ? Benign Cellular Changes DESCRIPTIVE DIAGNOSIS ? Predominance of coccobacilli present consistent with shift in vaginal arely. ? Document reviewed and electronically signed by: ? Cyndi Ahmadi, ??SCT(ASCP) ? Report Date: ??03/18/2001 13:30 End of Report Specimen Performing Organization Address City/State/ZIP Code Phon e Number [facility] [address] [place] [address] SERVICES [facility] [address] [place] [address] documented in this encounter Visit Diagnoses Not on filedocumented in this encounter
--- OUTSIDE RECORDS SUMMARY | 2022-05-02 00:09 | XMS_ITS | Encounter Summary ---
:1950 Author Organization [facility] Address [address] [place] [address] Care Team Providers Name Role Phone Unavailable Primary Care Provider Unavailable Encounter Details Date Type Department Care Team Description 10/23/2005 Results Only [facility] - Nick Nunez MD Maple conversion [address] [facility] [address] [place], [place] [address] [place] [id number] [phone] Social History Tobacco Use Types Packs/Day Years Used Date Never Assessed Sex Assigned at Date Recorded Not on file documented as of this encounter Plan of Treatment Not on filedocumented as of this encounter Procedures Procedure Name Priority Date/Time Associated Diagnosis Comme [facility] SURGICAL PATHOLOGY Routine 10/23/2005 0:00 EST Re sults for this procedure are i n the results section. documented in this encounter Results SURGICAL PATHOLOGY (10/23/2005 0:00 EST) Pathology Report: SURGICAL PATHOLOGY REPORT [facility] Reports generated via electronic interface contain lor ginal data; LAB however they are lacking the format of the original re port. Caution should be taken when reading/interpreting unfo rmatted reports. Name: ? NEREIDA GRANADOS ? Accession #: ? [id number] ? : ? 1950 (Age: 55) ??F ? Collect Date: ? 10/23/2005 ? Location: ? [facility] ? Receive Date: ? 006 ? Provider: NICK NUNEZ MD Copy to: ETHANAVI LOZANO REALTIME REPORTER ? Final Pathologic Diagnosis: A. ?Colon, hepatic flexure, polypectomy: 1. ?Hyperplastic polyp. B. ?Colon, transverse, polypectomy: ? 1. ?? Hyperplastic polyp. Document reviewed and electronically signed by: Elvin Pruitt MD Report ??Date: 10/27/2005 15:14 By the signature above, the attending physician certif ies that he/she has personally conducted a gross and/or microscopic examin ation of the described specimens and rendered or confirmed the above diagnosi s. Specimen(s) Received: A. ?Polyp, hepatic flexure (#1) B. ?Polyp trans colon polyp (#2) Clinical History: ? Polyps Gross Description: ? Received in Hollande' s fixative labelled Kinga and 1 ??hepatic flexure polyp is a 0.5 x 0.4 x 0.2 cm sessile polyp. Bisected and submitted entirely as (A). Received in Hollande's fixat apolinar labelled Kinga and 2 ??transverse colon polyp is a 0.2 x 0.2 x 0.2 cm piece of tissue. Submitted int act as (B). ??(Tyler Samuels)/[facility] End of Report Specimen Performing Organization Address City/State/ZIP Code Phon e Number [facility] [address] [place] [address] SERVICES [facility] [address] [place] [address] documented in this encounter Visit Diagnoses Not on filedocumented in this encounter
--- OUTSIDE RECORDS SUMMARY | 2022-05-02 00:09 | XMS_ITS | Encounter Summary ---
:1950 Author Organization [facility] Address [address] [place] [address] Care Team Providers Name Role Phone Unavailable Primary Care Provider Unavailable Encounter Details Date Type Department Care Team Description 04/15/2007 Results Only [facility] - Nick Nunez MD Maple conversion [address] [facility] [address] [place], [place] [id number] [place] [id number] [phone] Social History Tobacco Use Types Packs/Day Years Used Date Never Assessed Sex Assigned at Date Recorded Not on file documented as of this encounter Plan of Treatment Not on filedocumented as of this encounter Procedures Procedure Name Priority Date/Time Associated Diagnosis Comme [facility] SURGICAL PATHOLOGY Routine 04/15/2007 0:00 EDT Re sults for this procedure are i n the results section. documented in this encounter Results SURGICAL PATHOLOGY (04/15/2007 0:00 EDT) Pathology Report: SURGICAL PATHOLOGY REPORT [facility] Reports generated via electronic interface contain lor ginal data; LAB however they are lacking the format of the original re port. Caution should be taken when reading/interpreting unfo rmatted reports. Name: ? NEREIDA GRANADOS ? Accession #: ? [id number] ? : ? 1950 (Age: 56) ??F ? Collect Date: ? 04/15/2007 ? Location: ? [facility] ? Receive Date: ? 007 ? Provider: NICK NUNEZ MD Copy to: ETHAN LOZANO SLATE PICKER ? Final Pathologic Diagnosis: ? Colon, transverse, polyp, biopsy: - Hyperplastic polyp. Document reviewed and electronically signed by: Otoniel Laurent MD Report ??Date: 04/19/2007 14:44 By the signature above, the attending physician certif ies that he/she has personally conducted a gross and/or microscopic examin ation of the described specimens and rendered or confirmed the above diagnosi s. Specimen(s) Received: ? Transverse colon polyp bx Clinical History: ? Hx polyps Oct 20 Gross Description: ? Received in Hollande' s fixative labelled Kinga and transverse colon bx are two holcomb-pink polypoid po rtions of soft tissue averaging 0.2 x 0.1 x 0.1 cm. The specimen is submitted in toto in one cassette. (Alessandro Whitaker/[facility] End of Report Specimen Performing Organization Address City/State/ZIP Code Phon e Number [facility] [address] [place] [address] SERVICES [facility] [address] [place] [address] documented in this encounter Visit Diagnoses Not on filedocumented in this encounter
--- OUTSIDE RECORDS SUMMARY | 2022-05-02 00:09 | XMS_ITS | Encounter Summary ---
:1950 Author Organization [facility] Address [address] [place] [address] Care Team Providers Name Role Phone Unavailable Primary Care Provider Unavailable Encounter Details Date Type Department Care Team Description 07/30/2005 Results Only [facility] - Ethan Gilliland FNP conversion [address] [place], [place] [phone] [place] [phone] (Wo rk) Social History Tobacco Use Types Packs/Day Years Used Date Never Assessed Sex Assigned at Date Recorded Not on file documented as of this encounter Plan of Treatment Not on filedocumented as of this encounter Procedures Procedure Name Priority Date/Time Associated Diagnosis Comme nts CYTOPATHOLOGY Routine 07/30/2005 0:00 EST Results for this procedure are i n the results section . documented in this encounter Results CYTOPATHOLOGY (07/30/2005 0:00 EST) Pathology Report: CYTOPATHOLOGY REPORT [facility] Reports generated via electronic interface contain lor ginal data; however they are lacking the format of the original re port. Caution should be taken when reading/interpreting unfo rmatted reports. Name: ? NEREIDA GRANADOS ? Accession #: ? [id number] : ? 1950 (Age: 54) ??F ?Collect Date: ? 07/15 Location: ? [facility] ? Receive Date : ? 08/01/2005 Provider: ?ETHAN LOZANO MARKETING ROTATION ASSOCIATE Copy to: ? Specimen/Source: ? ThinPrep Pap Test, Cervix/Endocervix, processed on [employer] ThinPrep Imaging System, with manual evaluation Last Menstrual Period: ? 06/17 Other: ? HPVA - HPV testing requested if ASC-US on the current ThinPrep Pap test. ? SPECIMEN ADEQUACY ? Satisfactory for Evaluation - transformation zone component present GENERAL CATEGORIZATION ? Negative for Intraepithelial Lesion or Malignan cy ? Document reviewed and electronically signed by: ? Hilary Luo, SCT(ASCP) ? Report Date: ??08/05/2005 09:36 End of Report Specimen Performing Organization Address City/State/ZIP Code Phon e Number [facility] [address] [place] [phone] SERVICES [facility] [address] [place] [address] documented in this encounter Visit Diagnoses Not on filedocumented in this encounter
--- OUTSIDE RECORDS SUMMARY | 2022-05-02 00:09 | XMS_ITS | Encounter Summary ---
:1950 Author Organization [facility] Address [address] [place] [address] Care Team Providers Name Role Phone Alma Roberts APPLICATIONS SUPPORT ANALYST Primary Care Provider Encounter Details Date Type Department Care Team Description 06/20/2016 Results Only [facility]- Tressa Jennings, PUBLIC HEALTH REGISTRAR [address] [place], [place] [phone] (Wo rk) Social History Tobacco Use Types Packs/Day Years Used Date Never Assessed Sex Assigned at Date Recorded Not on file documented as of this encounter Plan of Treatment Not on filedocumented as of this encounter Procedures Procedure Name Priority Date/Time Associated Diagnosis Comme nts PAP TEST- RESULT Routine 06/20/2016 0:00 EDT Resu lts for this ONLY procedure are i n the results section. documented in this encounter Results PAP TEST- RESULT ONLY (06/20/2016 0:00 EDT) Pathology Report: CYTOPATHOLOGY REPORT [facility] Reports generated via electronic interface contain lor ginal data; SERVICES however they are lacking the format of the original re port. Caution should be taken when reading/interpreting unfo rmatted reports. Name: ? NEREIDA GRANADOS ? Accession #: ? [id number] ? : ? 1950 (Age: 65) ??F ?Collect Date: ? 06/20/2016 ? Location: ? [facility] ? Receive Date: ? 016 ? Provider: TRESSA HUNTLEY PUBLIC HEALTH REGISTRAR Copy to: ? Final Report SPECIMEN ADEQUACY ? Satisfactory for Evaluation - assessment of transformation zone component not appl icable ( e.g. atrophy, vaginal sample, hysterectomy) - scant squamous epithelial component secondary to exc essive inflammation - obscuring contamination, possibly lubricant GENERAL CATEGORIZATION ? Negative for Intraepithelial Lesion or Malignan cy ?? Menstrual/ Status: ??Post Menopausal Hormonal/Contraceptive status: None Specimen/Source: ??Pap Test, Cervix/Endocervix, ThinPr ep Imaging System with manual evaluation Document reviewed and electronically signed by: ? MAURI Love(ASCP) ? Report ??Date: 06/24/2016 13:49 HPV with Pap Test ? Date Ordered: ? 06/24/2016 ? Status: ?? Signed Out ?Date Complete: ? 06/26/2016 ? By: ??S ystem Interface ? Date Reported: ? 06/26/2016 ? Interpretation RESULT: Negative for HPV. No E6 or E7 mRNA is detected from HPV types 16,18,31,3 3,35, 39,45,51,52,56,58,59,66, and 68 by hosiery looper media fadia amplification. Comments Document reviewed and electronically signed by: ? System Interface ? Report date: 06/26/2016 By the signature above, the attending physician certif ies that he/she has personally conducted a gross and/or microscopic examin ation of the described specimens and rendered or confirmed the above diagnosi s. End of Report Specimen Performing Organization Address City/State/ZIP Code Phon e Number [facility] [address] [place] [address] SERVICES documented in this encounter Visit Diagnoses Not on filedocumented in this encounter Care Teams Coffee Grinder Relationship Specialty Start Date End Date Alma Roberts FNP PCP - General 02/20/15 documented as of this encounter
--- OUTSIDE RECORDS SUMMARY | 2022-05-02 00:09 | XMS_ITS | Encounter Summary ---
:1950 Author Organization [facility] Address [address] [place] [address] Care Team Providers Name Role Phone Unavailable Primary Care Provider Unavailable Encounter Details Date Type Department Care Team Description 02/15/2015 Results Only [facility]- Tressa Jennings, REPAIRER SWITCHGEAR [address] [place], [place] [phone] (Wo rk) Social History Tobacco Use Types Packs/Day Years Used Date Never Assessed Sex Assigned at Date Recorded Not on file documented as of this encounter Plan of Treatment Not on filedocumented as of this encounter Procedures Procedure Name Priority Date/Time Associated Diagnosis Comme [facility] SURGICAL PATHOLOGY Routine 02/15/2015 17:39 Resul ts for this EDT procedure are i n the results section. documented in this encounter Results SURGICAL PATHOLOGY (02/15/2015 17:39 EDT) Pathology SURGICAL PATHOLOGY REPORT [facility] MEDICAL Report: Reports generated via electronic interface conta in original data; CENTER however they are lacking the format of the original re port. LABORATORY Caution should be taken when reading/interpretin g unformatted reports. SERVICES Name: ? NEREIDA GRANADOS ? Accession #: ? [id number] ? : ? 1950 (Age: 64) ??F ? Collect Date: ? 02/15/2015 ? Location: ? [facility] ? Receive Date: ? 5 ? Provider: TRESSA HUNTLEY REPAIRER SWITCHGEAR Copy to: ? Final Pathologic Diagnosis: SKIN OF CALF, RIGHT UPPER POSTERIOR, EXCISION: - Squamous cell carcinoma, well differentiated, invasi ve. - Margins negative for squamous cell carcinoma. Microscopic Description: The stratum corneum is thickened by orthohyperkeratosi s and parakeratosis. Emanating from the epidermis and extending into the dermis is a proliferation of atypical squamous epithelium. ??The proliferatio n consists of variably sized, irregular islands associated with dermal desmoplasia. ??The cells have an increased nuclear-cytoplasmic ratio and nuclear pleomorphism. ??Intercellular bridge and keratin lloyd formation are evident. ??(Dr. Flower)/[facility] Document reviewed and electronically signed by: KOFI FLOWER MD Report ??Date: 02/19/2015 17:23 By the signature above, the attending physician certif ies that he/she has personally conducted a gross and/or microscopic examin ation of the described specimens and rendered or confirmed the above diagnosi s. Specimen(s) Received: Elliptical procedure for excision R upper post calf Clinical History: Lesion R upper post calf for 6 mos, increasing in size and more tender Gross Description: ? Received in formalin labelled with proper patient identification (initials C, C) and R upper posterior calf is an unoriented el liptical excision of ndiaye-holcomb skin (2.2 x 1.3 cm and is excised to a depth of 0.1 cm). There is a central firm ndiaye-white, focally crusted roughen ed nodule that measures 1.0 x 0.7 x 0.5 cm. The margins ar e inked blue. The specimen is serially sectioned and entirely submitted as 1-3 central sections and 4 tips, reverse en face. Linda Hare 02/16/2015 08:20 AM End of Report Specimen Performing Organization Address City/State/ZIP Code Phon e Number [facility] [address] [place] [id number] SERVICES documented in this encounter Visit Diagnoses Not on filedocumented in this encounter
--- OUTSIDE RECORDS SUMMARY | 2022-05-02 00:09 | XMS_ITS | Encounter Summary ---
:1950 Author Organization [facility] Address [address] [place] [address] Care Team Providers Name Role Phone Unavailable Primary Care Provider Unavailable Encounter Details Date Type Department Care Team Description 12/27/2010 Results Only [facility] Ethan Roberts FNP Laboratory Services - [address] [address] [place] [address] [phone] Social History Tobacco Use Types Packs/Day Years Used Date Never Assessed Sex Assigned at Date Recorded Not on file documented as of this encounter Plan of Treatment Not on filedocumented as of this encounter Procedures Procedure Name Priority Date/Time Associated Diagnosis Comme nts CYTOPATHOLOGY Routine 12/27/2010 0:00 EDT Results for this procedure are i n the results section . documented in this encounter Results CYTOPATHOLOGY (12/27/2010 0:00 EDT) Pathology Report: CYTOPATHOLOGY REPORT ? DRAKE ALL EN ? LAB Reports generated via Victorious interface contain original data; ? however they are lacking the format of the original report. ? Caution should be taken when reading/interpreting unformatted reports. ? Name: ? DARWIN, NEREIDA ? Accession #: ? [id number] ? : ? 1950 (Age: 60) ??F ?Collect Date: ? 12/27/2010 ? Location: ? [facility] ? Receive Date: ? 12/30/2010 ? Provider: ?ETHAN HES S A/C TECHNICIAN ? Copy to: ? Specimen/Source: ? Pap Test, Cervix/Endocervix, ThinPrep Imaging System ? with manual evaluation ? Last Menstrual Period: ? 10/06 ? SPECIMEN ADEQUACY ? Satisfactory for Eval uation ? - assessment of transformati on zone component not applicable ( e.g. atrophy, ? vaginal sample, hysterectomy ) ? - scant squamous epithelial component secondary to excessive inflammation ? GENERAL CATEGORIZATION ? Negative for Intraepi thelial Lesion or Malignancy ? Document reviewed and electr onically signed by: ? Hilary Luo, SCT( ASCP) ? Report Date: ??04/22/ 2011 16:09 ? End of Report ? Specimen Performing Organization Address City/State/ZIP Code Phon e Number [facility] [address] [place] [address] SERVICES [facility] [address] [place] [address] documented in this encounter Visit Diagnoses Not on filedocumented in this encounter
--- OUTSIDE RECORDS SUMMARY | 2022-05-02 00:09 | XMS_ITS | Encounter Summary ---
:1950 Author Organization [facility] Address [address] [place] [address] Care Team Providers Name Role Phone Unavailable Primary Care Provider Unavailable Encounter Details Date Type Department Care Team Description 09/08/2002 Results Only [facility] - Ethan Gilliland FNP conversion [address] [place], [place] [address] [place] [phone] (Wo rk) Social History Tobacco Use Types Packs/Day Years Used Date Never Assessed Sex Assigned at Date Recorded Not on file documented as of this encounter Plan of Treatment Not on filedocumented as of this encounter Procedures Procedure Name Priority Date/Time Associated Diagnosis Comme nts CYTOPATHOLOGY Routine 09/08/2002 0:00 EST Results for this procedure are i n the results section . documented in this encounter Results CYTOPATHOLOGY (09/08/2002 0:00 EST) Pathology Report: CYTOPATHOLOGY REPORT [facility] Reports generated via electronic interface contain lor ginal data; however they are lacking the format of the original re port. Caution should be taken when reading/interpreting unfo rmatted reports. Name: ? NEREIDA GRANADOS ? Accession #: ? [id number] : ? 1950 (Age: 52) ??F ?Collect Date: ? 08/15 Location: ? [facility] ? Receive Date : ? 09/12/2002 Provider: ?ETHAN LOZANO PIT RECORDER Copy to: ? Specimen/Source: ?ThinPrep Pap Test, Cervix/ Endocervix Last Menstrual Period: ? 08/28/02 ? SPECIMEN ADEQUACY ? Satisfactory for Evaluation - transformation zone component present GENERAL CATEGORIZATION ? Negative for Intraepithelial Lesion or Malignan cy INTERPRETATION ? Shift in arely present suggestive of bacterial vaginosis. ? Document reviewed and electronically signed by: ? MAURI Love(ASCP) ? Report Date: ??09/13/2002 15:17 End of Report Specimen Performing Organization Address City/State/ZIP Code Phon e Number [facility] [address] [place] [address] SERVICES [facility] [address] [place] [address] documented in this encounter Visit Diagnoses Not on filedocumented in this encounter
--- OUTSIDE RECORDS SUMMARY | 2022-05-02 00:09 | XMS_ITS | Clinical Summary ---
:[address] [facility] Address [address] [place] [address] Care Team Providers Name Role Phone Amla Roberts Primary Care Provider Social History Tobacco Use Types Packs/Day Years Used Date Never Assessed Sex Assigned at Date Recorded Not on file Plan of Treatment Health Maintenance Due Date Last Done Comments Fall Risk Screening 2016 Care Teams Owner/Photographer Relationship Specialty Start Date End Date Alma Roberts FNP PCP - General 02/20/15
--- OUTSIDE RECORDS SUMMARY | 2022-05-02 00:09 | XMS_ITS | Encounter Summary ---
:1950 Author Organization [facility] Address [address] [place] [address] Care Team Providers Name Role Phone Alma Roberts SHIPPING AGENT Primary Care Provider Encounter Details Date Type Department Care Team Description 02/08/2020 Lab Requisition [facility] Outr Resulting Lab, Pathology & Laboratory Provider [facility] [address] [place], [place] [address] Social History Tobacco Use Types Packs/Day Years Used Date Never Assessed Sex Assigned at Date Recorded Not on file documented as of this encounter Plan of Treatment Not on filedocumented as of this encounter Procedures Procedure Name Priority Date/Time Associated Diagnosis Comme nts COVID-19 TEST [facility] Today 02/08/2020 12:10 LAB PCR EDT COVID-19 TESTING Routine 02/08/2020 12:10 Results for this EDT procedure are i n the results section. documented in this encounter Results COVID-19 TEST [facility] LAB PCR (02/08/2020 12:10 EDT) Specimen Swab - Entire nasopharynx (body structur e) Performing Organization Address City/State/ZIP Code Phon e Number [facility] [address] [place] [address] SERVICES COVID-19 TESTING (02/08/2020 12:10 EDT) COVID-19 rt-PCR Negative Negative [facility] Result Comment: CENTER LABORATORY Negative results do not prec lude 2019-nCoV infection and should not be used as the sole basis for treatment or other patient management decisions. Negative results must be combined with clinical observa SERVICES tions, patient history, and epidemiological informatio n. This test was developed and its performance characteristics determined by [facility]. It has not been cleared or approved by the US Food and Drug Administration. FDA does not require this test to go through premarket FDA review. This t est is used for clinical purposes. It should not be regarded as investigational or for research. This laboratory is certified under the Clinical Laboratory Improvement Amendm ents (CLIA) as qualified to perform high complexity clinical laboratory testing. This test is based on the CD C COVID-19 Emergency Use Authorization (EUA) assay, with minor modification as defined by the FDA Performed on the [employer] 7500 Fast. Performing Lab AB 7500 [facility] Lab [facility] SERVICES Specimen Swab - Entire nasopharynx (body structur e) Performing Organization Address City/State/ZIP Code Phon e Number [facility] [address] [place] [address] SERVICES documented in this encounter Visit Diagnoses Not on filedocumented in this encounter Care Teams Wool Grower Relationship Specialty Start Date End Date Alma Roberts FNP PCP - General 02/20/15 documented as of this encounter
--- OUTSIDE RECORDS SUMMARY | 2022-05-02 00:09 | XMS_ITS | Encounter Summary ---
:1950 Author Organization [facility] Address [address] [place] [address] Care Team Providers Name Role Phone Unavailable Primary Care Provider Unavailable Encounter Details Date Type Department Care Team Description 10/21/2007 Results Only [facility] - Ethan Gilliland FNP conversion [address] [place], [place] [address] [place] [phone] (Wo rk) Social History Tobacco Use Types Packs/Day Years Used Date Never Assessed Sex Assigned at Date Recorded Not on file documented as of this encounter Plan of Treatment Not on filedocumented as of this encounter Procedures Procedure Name Priority Date/Time Associated Diagnosis Comme nts CYTOPATHOLOGY Routine 10/21/2007 0:00 EST Results for this procedure are i n the results section . documented in this encounter Results CYTOPATHOLOGY (10/21/2007 0:00 EST) Pathology Report: CYTOPATHOLOGY REPORT [facility] Reports generated via electronic interface contain lor ginal data; however they are lacking the format of the original re port. Caution should be taken when reading/interpreting unfo rmatted reports. Name: ? NEREIDA GRANADOS ? Accession #: ? [id number] : ? 1950 (Age: 57) ??F ?Collect Date: ? 03/2008 Location: ? [facility] ? Receive Date : ? 10/22/2007 Provider: ?ETHAN LOZANO RENOVATOR MACHINE OPERATOR Copy to: ? Specimen/Source: ? ThinPrep Pap Test, Cervix/Endocervix, processed on [employer] ThinPrep Imaging System, with manual evaluation Last Menstrual Period: ? DREW Other: ? HPVA - HPV testing requested if ASC-US on the current ThinPrep Pap test. ? SPECIMEN ADEQUACY ? Satisfactory for Evaluation - transformation zone component present GENERAL CATEGORIZATION ? Negative for Intraepithelial Lesion or Malignan cy ? Document reviewed and electronically signed by: ? MAURI Guerrero(ASCP) ? Report Date: ??10/28/2007 12:41 End of Report Specimen Performing Organization Address City/State/ZIP Code Phon e Number [facility] [address] [place] [address] SERVICES [facility] [address] [place] [address] documented in this encounter Visit Diagnoses Not on filedocumented in this encounter
--- OUTSIDE RECORDS SUMMARY | 2022-05-02 00:09 | XMS_ITS | Encounter Summary ---
:1950 Author Organization [facility] Address [address] [place] [address] Care Team Providers Name Role Phone Unavailable Primary Care Provider Unavailable Encounter Details Date Type Department Care Team Description 02/15/2015 Hospital Encounter [facility]- Fátima Unknown, Provider, Ryan Livingston [address] [phone] [place] [address] (Work) [phone] Social History Tobacco Use Types Packs/Day Years Used Date Never Assessed Sex Assigned at Date Recorded Not on file documented as of this encounter Discharge Disposition Disposition Code Departure Means Destination Home or Self [place] documented in this encounter Plan of Treatment Not on filedocumented as of this encounter Visit Diagnoses Not on filedocumented in this encounter
--- OUTSIDE RECORDS SUMMARY | 2022-05-02 00:09 | XMS_ITS | Encounter Summary ---
:1950 Author Organization [facility] Address [address] [place] [address] Care Team Providers Name Role Phone Unavailable Primary Care Provider Unavailable Encounter Details Date Type Department Care Team Description 06/11/2004 Results Only [facility] - Ethan Gilliland FNP conversion [address] [place], [place] [phone] [place] [phone] (Wo rk) Social History Tobacco Use Types Packs/Day Years Used Date Never Assessed Sex Assigned at Date Recorded Not on file documented as of this encounter Plan of Treatment Not on filedocumented as of this encounter Procedures Procedure Name Priority Date/Time Associated Diagnosis Comme nts CYTOPATHOLOGY Routine 06/11/2004 0:00 EDT Results for this procedure are i n the results section . documented in this encounter Results CYTOPATHOLOGY (06/11/2004 0:00 EDT) Pathology Report: CYTOPATHOLOGY REPORT [facility] Reports generated via electronic interface contain lor ginal data; however they are lacking the format of the original re port. Caution should be taken when reading/interpreting unfo rmatted reports. Name: ? NEREIDA GRANADOS ? Accession #: ? [id number] : ? 1950 (Age: 53) ??F ?Collect Date: ? 05/16 Location: ? [facility] ? Receive Date : ? 06/13/2004 Provider: ?ETHAN LOZANO RENEWALS SPECIALIST Copy to: ? Specimen/Source: ?ThinPrep Pap Test, Cervix/ Endocervix Last Menstrual Period: ? 06/16 Other: ? HPVA - HPV testing requested if ASC-US on the current ThinPrep Pap test. ? SPECIMEN ADEQUACY ? Satisfactory for Evaluation - transformation zone component present GENERAL CATEGORIZATION ? Negative for Intraepithelial Lesion or Malignan cy ? Document reviewed and electronically signed by: ? MAURI Guerrero(ASCP) ? Report Date: ??06/18/2004 07:40 End of Report Specimen Performing Organization Address City/State/ZIP Code Phon e Number [facility] [address] [place] [address] SERVICES [facility] [address] [place] [address] documented in this encounter Visit Diagnoses Not on filedocumented in this encounter
--- OUTSIDE RECORDS SUMMARY | 2022-05-02 00:09 | XMS_ITS | Encounter Summary ---
:1950 Author Organization [facility] Address [address] [place] [address] Care Team Providers Name Role Phone Unavailable Primary Care Provider Unavailable Encounter Details Date Type Department Care Team Description 10/24/2008 Before PRISM Converted [facility] - Ethan Roberts FNP Visit (Maple) Maple conversion [address] [place] [address] [place], [place] [phone] Social History Tobacco Use Types Packs/Day Years Used Date Never Assessed Sex Assigned at Date Recorded Not on file documented as of this encounter Plan of Treatment Not on filedocumented as of this encounter Procedures Procedure Name Priority Date/Time Associated Diagnosis Comme [facility] CYTOPATHOLOGY Routine 10/24/2008 0:00 EST Results for this procedure are i n the results section . documented in this encounter Results CYTOPATHOLOGY (10/24/2008 0:00 EST) Pathology Report: CYTOPATHOLOGY REPORT ? DRAKE ALL EN ? LAB Reports generated via [employer] interface contain original data; ? however they are lacking the format of the original report. ? Caution should be taken when reading/interpreting unformatted reports. ? Name: ? DARWIN, NEREIDA ? Accession #: ? [id number] ? : ? 1950 (Age: 58) ??F ?Collect Date: ? 10/24/2008 ? Location: ? [facility] ? Receive Date: ? 10/25/2008 ? Provider: ?ETHAN HES S TICKET SELLER ? Copy to: ? Specimen/Source: ? Pap Test, Cervix/Endocervix, ThinPrep Imaging System ? with manual evaluation ? Last Menstrual Period: ? DREW ? Other: ? HPVA - HPV testing requested if ASC-US on the current ThinPrep Pap test. ? SPECIMEN ADEQUACY ? Satisfactory for Eval uation ? - transformation zone compon ent present ? GENERAL CATEGORIZATION ? Negative for Intraepi thelial Lesion or Malignancy ? INTERPRETATION ? Reactive cellular jc nges associated with inflammation present (includes ?? repair). ? Document reviewed and electr onically signed by: ? Rocio C. Fernandez, MD ? Report Date: ??02/20/ 2009 17:19 ? End of Report ? Specimen Performing Organization Address City/State/ZIP Code Phon e Number [facility] [address] [place] [address] SERVICES [facility] [address] [place] [address] documented in this encounter Visit Diagnoses Not on filedocumented in this encounter
== END ==
PROVIDERS: PCP Nurse Practitioner Family; Visit Provider Nurse Practitioner Family
DX: Z12.31 Encounter for screening mammogram for malignant neoplasm of breast (principal); R16.0 Hepatomegaly, not elsewhere classified; K76.0 Fatty (change of) liver, not elsewhere classified
CPT/HCPCS: 77063; 77067; 76705

== ENCOUNTER 2023-03-19 12:55 | Outpatient (REF) | payer MEDICARE, SELFPAY ==
[2023-03-19 15:16] LABS: Abs Immature Grans 0.01 10^3/uL (0.0-0.06); Absolute Eosinophil Count 0.03 10^3/uL (0.0-0.7); Absolute Lymphocyte Count 1.49 10^3/uL (1.2-3.4); Absolute Monocyte Count 0.81 10^3/uL (0.1-0.8); Absolute Neutrophil Count 4.97 10^3/uL (1.2-6.7); Basophils % 1.3; Eosinophils % 0.4; HCT 38.3 % (36.0-46.0); HGB 12.4 g/dL (11.2-15.7); Immature Grans % 0.1; Lymphocytes % 20.1; MCH 30.1 pg (27.0-33.0); MCHC 32.4 % (32.0-36.0); MCV 93 fL (80-95); MPV 10.7 fL (8.0-11.0); Monocytes % 10.9; Neutrophils % 67.2; Platelet Count 255 10^3/uL (130-400); RBC 4.12 10^6/uL (3.93-5.22); RDW 11.9 % (11.7-14.6); RDW-SD 40.9 fL; WBC 7.41 10^3/uL (4.4-10.8)
[2023-03-19 15:48] LABS: ALT 23 U/L (14-59); AST 12 U/L (15-37); Albumin 4.3 g/dL (3.4-5.0); Alkaline Phosphatase 68 U/L (46-116); Anion Gap 9.5 mmol/L (3-11); BUN 11 mg/dL (7-18); Bilirubin, Direct 0.2 mg/dL (0.0-0.2); Bilirubin, Total 0.6 mg/dL (0.2-1.0); CO2 30.5 mmol/L (21.0-32.0); CREATININE 0.8 mg/dL (0.55-1.02); Calcium 9.7 mg/dL (8.5-10.1); Chloride 100 mmol/L (98-107); Estimated GFR 78.72 (mL/min/1.73m2); Glucose 108 mg/dL (74-106); Magnesium 1.7 mg/dL (1.8-2.4); Sodium 140 mmol/L (136-145); Total Protein 7.7 g/dL (6.4-8.2)
[2023-03-19 16:27] LABS: Vitamin B12 354 pg/mL (193-986)
== END 2023-03-19 12:56 | disposition home or self-care (01) ==
LOC: NCHCN 12:55
PROVIDERS: PCP Nurse Practitioner Family; Visit Provider Nurse Practitioner Family
DX: E78.5 Hyperlipidemia, unspecified (principal); E11.9 Type 2 diabetes mellitus without complications; I10 Essential (primary) hypertension; M85.88 Other specified disorders of bone density and structure, other site; R79.89 Other specified abnormal findings of blood chemistry; R94.5 Abnormal results of liver function studies; Z79.899 Other long term (current) drug therapy
CPT/HCPCS: 80053; 80076; 82607; 83735; 85025

== ENCOUNTER 2023-04-03 00:58 | Outpatient (CLI) | payer MEDICARE, SELFPAY ==
--- NOTE | 2023-04-03 | DI.US_ITS ---
Exam(s) US ABDOMEN LIMITED EXAM: US ABDOMEN LIMITED CLINICAL HISTORY: FATTY LIVER DISEASE,K76.0 TECHNIQUE: Ultrasound abdomen performed using standard protocol. COMPARISON: US US ABDOMEN LIMITED from 05/02/2022 FINDINGS: LIVER: 17 cm in length. Mildly increased echogenicity consistent with mild hepatic steatosis. Findi ngs appear somewhat improved from the previous exam. No focal liver lesions are seen. GALLBLADDER: Status post cholecystectomy. BILIARY SYSTEM: No intrahepatic or extrahepatic biliary ductal dilation. RIGHT KIDNEY: Normal size. No evidence of renal calculi. No evidence of hydronephrosis. No suspicious renal mass. No cyst identified. PANCREAS: Normal where visualized. ABDOMINAL AORTA AND IVC: Visualized portions normal caliber. ASCITES: None seen. IMPRESSION: Mild hepatic steatosis. DATA REPOSITORY:
== END 2023-04-03 01:18 ==
LOC: DI 00:58
PROVIDERS: PCP Nurse Practitioner Family; Visit Provider Nurse Practitioner Family
DX: K76.0 Fatty (change of) liver, not elsewhere classified (principal)
CPT/HCPCS: 76705

== ENCOUNTER → 2023-06-17 02:05 | Outpatient (CLI) | payer MEDICARE, SELFPAY ==
--- NOTE | 2023-06-17 07:30 | DI.US_ITS ---
APPROVED REPORT EXAM: Comprehensive 2D, Doppler, and color-flow Echocardiogram Other Information Study Quality: Good Conclusion Normal left ventricular wall thickness and chamber size. Ejection fraction is measured at 57%. Wall motion is normal Normal right ventricular size and systolic function Both atria are normal in size Aortic valve is mildly sclerotic and trileaflet without stenosis or regurgitation Mild mitral annular calcification. Trace mitral regurgitation Wall motion Left Ventricle The left ventricle is normal size. The left ventricular systolic function is normal. The left ventric ular ejection fraction is within the normal range. There is normal left ventricular wall thickness. T here is normal LV segmental wall motion. There is no ventricular septal defect visualized. LVEF is 57 %. Right Ventricle The right ventricle is normal size. The right ventricular systolic function is normal. Atria The left atrium size is normal. The right atrium size is normal. The interatrial septum is intact wit h no evidence for an atrial septal defect. Aortic Valve The aortic valve is mildly sclerotic Aortic valve is trileaflet. There is no aortic valvular stenosis . No aortic regurgitation is present. Mitral Valve There is mild mitral annular calcification. No evidence of mitral valve stenosis. Trace mitral regurg itation. Tricuspid Valve The tricuspid valve is normal in structure. There is no tricuspid valve stenosis. Trace tricuspid reg urgitation. Unable to assess PA pressure. Pulmonic Valve The pulmonary valve is normal in structure. There is no pulmonic valvular stenosis. There is no pulmo nino valvular regurgitation. Great Vessels The aortic root is normal in size. The ascending aorta is normal in size. Aortic arch is normal in c aliber. IVC is normal in size and collapses >50% with inspiration. Pericardium There is no pericardial effusion. 2D Dimensions IVSD d PLAX 1.15 cm F: 0.6-1.0 Ao Root d 3.02 cm F: 2.7 - 3.3 LVPW d PLAX 0.86 cm F: 0.6 - 1.0 Ao Asc Diam d 3.23 cm F: 2.3 - 3.1 LVID d PLAX 3.73 cm F: 3.8 - 5.2 LVDs 2.49 cm F: 2.2 - 3.5 LV EF Teichholz 63.0 % FS 33.47 % LV EDV (Teich) 59.4 mL LV ESV (Teich) 22.0 mL M-Mode TAPSE 1.84 cm (M/F) >1.7 Auto EF LV EDV A4C 60.5 mL LV EDV A2C 77.6 mL LV EDV BP 67.5 mL LV ESV A4C 26.7 mL LV ESV A2C 30.3 mL LV ESV BP 28.7 mL LVEF(%) A4C 55.9 % LVEF(%) A2C 61.0 % LVEF(%) BP 57.4 % LV SV A4C 33.8 ml LV SV A2C 47.3 ml LV SV BP 38.8 ml LV CO A4C 2.4 L/min LV CO A2C 3.2 L/min LV CO BP 2.8 L/min HR A4C 71.15 BPM HR A2C 67.29 BPM LV EDV Index (BP) LA Volume LA Length A4C 4.6 cm LA Length A2C 5.3 cm LA Area A4C s 13.73 cm2 LA Area A2C s 16.67 cm2 LA Vol A4C A-L 34.80 mL LA Vol A2C A-L 44.79 mL LA Vol Biplane A-L 42.3 mL LA Vol/BSA A4C A-L LA Vol/BSA A2C A-L LA Vol/BSA BP A-L 23.2 mL/m2 LA Vol A4C MOD 33.2 mL LA Vol A2C MOD 42.7 mL LA Vol BP MOD 40.3 mL RA Volume RA Area A4C 7.5 cm2 RA ESV A4C (A-L) 13.3mL RA Vol/BSA A4C A-L RA Length A4C 3.6 cm RA ESV A4C (MOD) 12.7mL LV Diastology MV E' medial 0.045 (>0.07 m/s) MV E Vmax 0.73 (0.4-1.3 m/s) MV E/E' MED 16.06 (<14) MV A Vmax 1.15 (0.4-1.3 m/s) MV E' lateral 0.064 (>0.1 m/s) E/A Ratio 0.6 MV E/E' LAT 11.37 (<14) MV E' Average 0.055 m/s MV E/E'(average) 13.31 Aortic Valve AoV Vmax 1.50 m/s LVOT Vmax 1.11 m/s AoV Peak Grad 9.0 mmHg LVOT Peak Grad 4.9 mmHg AoV Area (Vmax) 2.24 cm2 LVOT VTI 0.270 m AoV VTI 0.349 m LVOT Mean Grad 2.7 mmHg AoV Mean Teo. 1.13 m/s LVOT SV 81.58 mL AoV Mean Grad 5.7 mmHg LVOT Diam s 1.95 cm AoV Area (VTI) 2.34 cm2 Velocity Ratio 0.74 Mitral Valve MV DT 445 (160-240 msec) Pulmonary Valve PV Vmax 0.80 (0.5-1.5 m/s) RVOT Vmax 0.64 m/s PV Peak Grad 2.6 mmHg RVOT Peak Gr. 1.6 mmHg PV Mean Teo 0.62 m/s RVOT VTI 0.155 m PV Mean Grad 1.7 mmHg RVOT Mean Gr. 1.0 mmHg Tricuspid Valve RA Pressure 3.00 mmHg TV S' 0.17 m/s
== END ==
PROVIDERS: PCP Nurse Practitioner Family; Visit Provider Internal Medicine Cardiovascular Disease
DX: R55 Syncope and collapse (principal)
CPT/HCPCS: 93306

== ENCOUNTER → 2023-07-30 13:21 | Outpatient (BNVA) | payer MEDICARE, SELFPAY | PROVIDERS: PCP Nurse Practitioner Family; Referring Provider Nurse Practitioner Family; Visit Provider Physical Therapy Assistant | DX: Z12.11 Encounter for screening for malignant neoplasm of colon (principal); Z86.010 Personal history of colon polyps ==

== ENCOUNTER 2023-08-28 07:44 | Day surgery (SDC) | payer MEDICARE, SELFPAY ==
--- NOTE | 2023-08-27 21:14 | W.PM.DSUDISC ---
Date of service: 08/28/23 Time of Service: 09:51 Discharge Plan Disposition Patient Disposition: Home Condition: Good Discharge Details Reason For Visit: screening colonscopy Attending Provider: Phillip Baer Primary Care Provider: Maureen Wang Home Meds and New Rx's Prescriptions: Continued metformin 500 mg tablet 500 mg PO BID famotidine 20 mg tablet 20 mg PO DAILY losartan 50 mg tablet 50 mg PO DAILY atorvastatin 20 mg tablet 20 mg PO QHS hydrochlorothiazide 25 mg tablet 25 mg PO DAILY aspirin 81 MG tablet,delayed release (DR/EC) 81 mg PO DAILY ibuprofen 600 MG tablet 600 mg PO Q6H PRN PRNQty: 30 0RF Centrum Silver 400-250 mcg tablet,chewable 1 tab PO DAILY cholecalciferol (vitamin D3) 25 mcg (1,000 unit) capsule 25 mcg PO DAILY magnesium citrate 125 mg capsule 250 mg PO DAILY melatonin 1 mg tablet 2 mg PO DAILY Probiotic 10 billion cell capsule 100 mmu cells PO DAILY Discontinued polyethylene glycol 3350 17 gram/dose powder 17 g PO DAILY Qty: 238 0RF bisacodyl [Dulcolax (bisacodyl)] 5 mg tablet,delayed release (DR/EC) 5 mg PO ONCE Qty: 4 0RF Discharge Instructions Instructions: Hemorrhoids (GEN), Diverticulosis (GEN), Colorectal Polyps (GEN), Diverticulosis Diet (GEN) Additional Instructions: Lata, we were able to complete your colonoscopy today without any difficulty. I did find 1 polyp. There were no features of it in particular that looked worrisome. I was able to remove it completely. When I have the report from the polyp exam, I will be in touch with my recommendations for your next colonoscopy. Incidentally, he also have a fair amount of hemorrhoids. I also found some evidence of diverticulosis. I have attached some general information here regarding polyps, hemorrhoids, and diverticulosis. If you have any questions at all at any point, please do not hesitate to call. Otherwise, I will be in touch when I have the pathology results. 1. If tolerated, consume a soft, low fiber diet for 1-2 days. 2[address] Do not drive, drink alcohol, operate machinery, make critical decisions, or do activities that require coordination or balance for 24 hours. 3. Because air was put into your colon during the procedure, expelling air from your rectum (passing gas or farting) is normal. 4. You may not have a bowel movement for 1-3 days because of the colonoscopy prep. This is normal. 5. Go directly to the emergency room if you notice any of the following: Develop chills (warm to touch), or if you have a thermometer and your temperature is above 101 Difficulty breathing or difficultly swallowing Persistent vomiting Severe abdominal pain, other than gas cramps Severe chest pain Black, tarry stools Any bleeding ? exceeding one tablespoon 6. Call your physician if the site where your intravenous was started becomes red, swollen, painful, and warm to touch. 7. Your physician has reviewed your pre-procedure medications. Please continue to take those medications as previously ordered. You will be given specific information/education regarding any changes to your medications before leaving. Activity:: Activity as Tolerated Diet:: As Tolerated Discharge Orders Discharge Orders: Discharge Order (Routine); Ordered 08/27/23 Ordered By: Phillip Baer DS: Diagnosis Discharge Diagnosis (1) Screen for colon cancer: Status: Acute
--- NOTE | 2023-08-27 21:16 | W.COLOREPORT ---
Date of service: 08/28/23 Time of Service: 09:54 Colonoscopy Report Date of procedure: 08/28/23 Pre-op diagnosis general: screening colonoscopy Post-op diagnosis procedure note: other (Internal and external hemorrhoids, diverticulosis, colon polyp) Procedure: colonoscopy with polypectomy Surgeon: Phillip Baer Anesthesia Type: General:No Airway Estimated blood loss (mL): 5 Pathology: other (0.5 cm polyp at 85 cm) Complications: None Disposition: same day Indications: Mai is 73 years old. She has a history of adenomatous ployps and she needs her next screening colonocsopy Prep: Miralax/Dulcolax Procedure Start Time: 09:04 Procedure End Time: 09:40 Retraction Time: 21 Findings: Internal and external hemorrhoids, mostly sigmoid diverticulosis, 0.5 cm polyp Procedure Description: After the induction of monitored anesthetic care, and with the patient in left lateral decubitus position, I began by performing an external anorectal exam.? Perineum and skin were normal, as was the anal verge.? There are external hemorrhoids.? Next, I performed a digital rectal exam.? This felt normal.? Next, I advanced a colonoscope into the rectal vault.? I performed retroflexion.? There were grade 2 internal hemorrhoids.? Using insufflation, I then advanced the colonoscope beyond the rectal folds and into the sigmoid colon before advancing towards the cecum.? There was sigmoid diverticulosis, and several of the diverticula were impacted with stool. None look particularly inflamed. There was no stigmata of recent bleeding. As I advanced towards the cecum, there were a few other scattered diverticula. The scope was noted to be in the cecum by identification of the ileocecal valve and appendiceal orifice.? I then began withdrawing the colonoscope using repeated irrigation as necessary for full evaluation of the colonic mucosa. Around 85 cm from the anal verge I identified a 0.5 cm polyp. ?It appeared flat in character. ?I was able to remove this with a cold forcep polypectomy and 2 bites. ?I examined the site, and there was minimal bleeding. ?Once this was completed, I continued to withdraw the scope and examine the remainder of the colonic mucosa. ?Once the scope was withdrawn to the level of the rectum, great care was taken to examine portions of the rectal folds.? Finally, the scope was withdrawn and the patient was brought to the same-day surgery recovery unit as the anesthetic wore off. ?The findings and instructions were shared with the patient prior to discharge. Maskell Bowel Prep Maskell Bowel Prep Right Colon: 2 Left Colon: 3 Transverse Colon: 3 Total Score: 8
[2023-08-28 08:11] VITALS: BP 149/86; PULSE 86; RESP 18; TEMP 36.2; O2SAT 99
--- NOTE | 2023-08-28 08:21 | W.ANESPRE ---
General Info Date of Service Date Performed: 08/28/23 Height: 5 ft 6 in Weight: 71.3 kg Body Mass Index (BMI): 25.3 Surgical Procedure: Operation Date: 08/28/23 09:05 Proposed Procedure Side Surgeon albert Baer MD Meds Allergies and Home Medications Allergies Allergy/AdvReac Type Severity Reaction Status Date / Time pravastatin Allergy Intermediate Verified 08/28/23 08:11 lisinopril Allergy Mild Verified 08/28/23 08:11 Home Medication Medication Instructions Recorded aspirin 81 mg tablet,delayed 81 mg PO DAILY 04/11/14 release ibuprofen 600 mg tablet 600 mg PO Q6H PRN PRN #30 tabs 04/11/14 atorvastatin 20 mg tablet 20 mg PO QHS 01/22/23 famotidine 20 mg tablet 20 mg PO DAILY 01/22/23 hydrochlorothiazide 25 mg tablet 25 mg PO DAILY 01/22/23 losartan 50 mg tablet 50 mg PO DAILY 01/22/23 metformin 500 mg tablet 500 mg PO BID 07/30/23 Lactobacillus acidophilus 10 100 mmu cells PO DAILY 08/28/23 billion cell capsule (Probiotic) cholecalciferol (vitamin D3) 25 25 mcg PO DAILY 08/28/23 mcg (1,000 unit) capsule magnesium citrate 125 mg capsule 250 mg PO DAILY 08/28/23 melatonin 1 mg tablet 2 mg PO DAILY 08/28/23 multivit with min-folic 1 tab PO DAILY 08/28/23 acid-lutein 400 mcg-250 mcg chewable tablet (Centrum Silver) Current Visit Medications: Current Medications Generic Name Dose Route Start Last Admin Trade Name Freq PRN Reason Stop Dose Admin Hyoscyamine Sulfate 0.125 mg 08/27/23 21:17 Hyoscyamine 0.125 Mg Sl/Oral/Chew SL 09/26/23 21:16 DIRECTED PRN Ringer's Solution 1,000 mls @ 80 mls/hr 08/28/23 06:00 IV 09/26/23 23:59 INFUSION [facility] IV Miscellaneous Supplies 1 each 08/28/23 06:00 Iv Access IV 09/26/23 23:59 DIRECTED [facility] Ondansetron HCl 4 mg 08/27/23 21:17 Ondansetron 4 Mg/2 Ml Vial IVP 09/26/23 21:16 Q4H PRN PRN Nausea / Vomiting Sodium Chloride 0 ml 08/28/23 06:00 Normal Saline Flush 10 Ml Syr IV 09/26/23 23:59 PRN PRN Sodium Chloride 0 ml 08/28/23 06:00 Normal Saline 10 Ml Vial IJ 09/26/23 23:59 DIRECTED PRN Sterile Water 0 ml 08/28/23 06:00 Water,Injection,Sterile 10 Ml Vial IJ 09/26/23 23:59 DIRECTED PRN PFSH Active Problems Active Problems: Problem Status Onset Code Screen for colon cancer Z12.11 Depression F32.A Hyperlipidemia E78.5 Diabetes mellitus E11.9 GERD (gastroesophageal reflux disease) K21.9 Hypertension I10 Medical History Medical History Paresthesia Heart murmur, systolic Adenomatous colon polyp (~2017) Osteopenia Fatty liver Surgical History Surgical History History of colonoscopy with polypectomy (~2017) Tobacco Smoking/Tobacco Use Status: Never Alcohol Alcohol Intake: current Alcohol intake frequency: a few times a week Alcohol type: wine Substance Use Substance use: Never Substance use type: does not use Vital Signs and Lab Results Vital Signs Most Recent Vital Signs in EMR: Most Recent Vital Signs Temp Pulse Resp BP Pulse Ox 36.2 C L 86 18 149/86 H 99 08/28/23 08:11 08/28/23 08:11 08/28/23 08:11 08/28/23 08:11 08/28/23 08:11 Point of Care Results Point of Care Results: Finger Stick Blood Glucose 144 08/28/23 07:58 Lab Results Blood Type / Crossmatch: No Data to Display Complete Blood Count: No Data to Display Complete Metabolic Panel: No Data to Display Liver Function Panel: No Data to Display Coagulation Panel: No Data to Display Cardiac Panel: No Data to Display Arterial Blood Gas: No Data to Display Venous Blood Gas: No Data to Display Pancreas Panel: No Data to Display Thyroid Panel: No Data to Display Infectious Disease: No Data to Display Blood Cultures: No Data to Display Toxicology Panel: No Data to Display Imaging and Studies Imaging and Studies Study information below may be from another EMR and interpreted by another provider. Please see original notes in EMR for more complete details. Echocardiogram Summary: Admission Date: 06/17/23 : 1950 Age: 72 APPROVED REPORT EXAM: Comprehensive 2D, Doppler, and color-flow Echocardiogram Other Information Study Quality: Good Conclusion Normal left ventricular wall thickness and chamber size. Ejection fraction is measured at 57%. Wall motion is normal Normal right ventricular size and systolic function Both atria are normal in size Aortic valve is mildly sclerotic and trileaflet without stenosis or regurgitation Mild mitral annular calcification. Trace mitral regurgitation Anesthesia Assessment and Plan Anesthesia History Personal History: No History of Anesthesia Complications Family History: No Family History of Anesthesia Complications Exercise Tolerance Exercise Tolerance: Metabolic Equivalents>4 Pertinent Negatives Pertinent Negatives: No Symptoms of GERD, No Major Cardiovascular Symptoms or Complaints and No Major Pulmonary Symptoms or Complaints Cardiac & Pulmonary Exam Cardiac Exam: Normal S1/S2 Heart Sounds Pulmonary Exam: Clear Bilateral Breath Sounds Implantable Cardiac Device Does patient have a Pacemaker or an ICD?: No Airway Exam Known Difficult Airway: No Mallampati Class: 2 Mouth Opening: Normal (> 3cm) Thyromental Distance: Greater than 3 cm Neck Range of Motion: Full ROM Neck Circumference: Normal Teeth Condition: Normal Dentition ASA Classification ASA Score: ASA 2 Emergency Case?: No NPO Status NPO Status: NPO Clears >2 hours, Solids >8 hours Anesthesia Plan Resuscitation Status: Full Code Anesthesia Technique: General Anesthesia Airway Planned: Natural Airway Monitors Used: Standard Monitors
[2023-08-28 08:23] VITALS: BMI 25.3
[2023-08-28] MEDS: Lactated Ringers 1,000 ML 80 ML IV (08:30)
--- NOTE | 2023-08-28 09:29 | BOWEL_PTH ---
PATIENT: Mai Donato LOC: [facility] U#:[id number] AGE/SX: 73/F ROOM: RE08/28/[address]: Phillip Baer MD : 1950 BED: DIS: 08/28/2023 SPEC #: [id number] RECD: 08/28/23 12:38 STATUS: FRANCOIS REQ #: [id number] STELLA: 08/28/23 09:[address]: Phillip Baer DEPT: Surgical Specimen RECD BY: Noa Krueger ENTERED: 08/28/23 12:38 SP TYPE: Bowel OTHR DR: Maureen Wang Tissues: 1 - BIOPSY BOWEL Procedures: GROSS AND MICRO LEVEL 4 Comments: [id number]
[2023-08-28 09:55] VITALS: BP 96/69; PULSE 79; RESP 16; TEMP 36.4; O2SAT 97
[2023-08-28 10:33] VITALS: BP 123/80; PULSE 72; RESP 16; TEMP 36.5; O2SAT 72
--- NOTE | 2023-08-28 10:34 | W.ANESPOSTOP ---
Postoperative Evaluation Date, Time and Location Date Performed: 08/28/23 Time Performed: 10:10 Patient Location: Day Surgery Unit Vital Signs Most Recent Imported Vital Signs: Most Recent Vital Signs Temp Pulse Resp BP Pulse Ox 36.4 C L 79 16 96/69 L 97 08/28/23 09:55 08/28/23 09:55 08/28/23 09:55 08/28/23 09:55 08/28/23 09:55 Pain Score Most Recent Pain Score: Most Recent Pain Score Pain Level 0 08/28/23 09:55 Assessment Mental Status: Awake (Alert & Oriented to Patient Baseline) Airway and Respiratory Function: Patent airway with normal (patient baseline) respiratory exam Cardiovascular Function: Hemodynamically Stable Hydration Status: Adequately Hydrated Nausea & Vomiting: No Nausea or Vomiting Pain: Pt. Denies Any Pain Peripheral Nerve Block: Patient did not receive a nerve block
== END 2023-08-28 07:45 | disposition home or self-care (01) ==
LOC: SUR 07:45
PROVIDERS: PCP Nurse Practitioner Family; Visit Provider Surgery
PROC: 0DJD8ZZ Inspection of Lower Intestinal Tract, Via Natural or Artificial Opening Endoscopic (ICD-10-PCS; CPT 45378; principal; 2023-08-28 09:00)
DX: Z12.11 Encounter for screening for malignant neoplasm of colon (principal); Z86.010 Personal history of colon polyps; D12.3 Benign neoplasm of transverse colon; K64.1 Second degree hemorrhoids; K57.30 Diverticulosis of large intestine without perforation or abscess without bleeding; K21.9 Gastro-esophageal reflux disease without esophagitis; E11.9 Type 2 diabetes mellitus without complications
CPT/HCPCS: 45380; 88305; J2704

== ENCOUNTER 2023-09-02 04:33 | Outpatient (CLI) | payer MEDICARE, SELFPAY ==
--- OUTSIDE RECORDS SUMMARY | 2023-09-02 04:35 | XMS_ITS | Continuity of Care Document ---
Author Name Unknown Organization [facility] Address [address] [place] [address] Care Team Providers Care Pump Stitcher Name Role Phone Maureen Wang Primary Care Physician Encounter [facility] Date(s): 05/15/23 - 05/15/23 [facility] [address] [place] [address] Discharge Disposition: Home Allergies, Adverse Reactions, Alerts Substance Reaction Severity Status lisinopril Moderate Active Pravastatin Sodium Moderate Active Assessment and Plan Future Appointments Medications Acidophilus Probiotic Blend 1 cap, Oral, Daily, 0 Refill(s) Start Date: 05/14/23 Status: Ordered aspirin 81 mg oral capsule 81 mg = 1 cap, Oral, Daily, do not exceed 48 capsules in 24 hours, # 30 cap, 0 Refill(s) Start Date: 05/14/23 Status: Ordered atorvastatin 20 mg oral tablet 20 mg = 1 tab, Oral, Daily, # 90 tab, 0 Refill(s) Start Date: 05/14/23 Status: Ordered cholecalciferol 250 mcg (10,000 intl units) oral tablet 0 Refill(s) Start Date: 05/14/23 Status: Ordered famotidine 20 mg oral tablet 20 mg = 1 tab, Oral, Daily, # 30 tab, 0 Refill(s) Start Date: 05/14/23 Status: Ordered FLUoxetine 10 mg oral capsule 10 mg = 1 cap, Oral, Daily, # 30 cap, 0 Refill(s) Start Date: 05/14/23 Status: Ordered FreeStyle Lite Test Strips Supply, See instructions, # 1 EA, 0 Refill(s) Start Date: 05/14/23 Status: Ordered hydroCHLOROthiazide 25 mg oral tablet 25 mg = 1 tab, Oral, Daily, 0 Refill(s) Start Date: 05/14/23 Status: Ordered LORazepam 0.5 mg oral tablet 0.5 mg = 1 tab, Oral, BID, PRN as needed for anxiety, 0 Refill(s) Start Date: 05/14/23 Status: Ordered losartan 50 mg oral tablet 50 mg = 1 tab, Oral, Daily, # 90 tab, 0 Refill(s) Start Date: 05/14/23 Status: Ordered metFORMIN 500 mg oral tablet See Instructions, 1 tab am 2 tabs pm with meals, 0 Refill(s) Start Date: 05/14/23 Status: Ordered traZODone 50 mg oral tablet 0 Refill(s) Start Date: 05/14/23 Status: Ordered zolpidem 5 mg oral tablet See Instructions, PRN as needed for insomnia, Take 1 tab PO on night of sleep study AFTER setup, may repeat x 1 if ineffective after 30 min., # 2 tab, 0 Refill(s), Pharmacy: [facility] #[id number] Start Date: 05/15/23 Status: Ordered Problem List Condition Confirmation Course Effective Dates Status Health St atus Informant Adenomatous colon polyp Confirmed Active Situational anxiety Confirmed Active Depression Confirmed Active GERD (gastroesophageal reflux disease) Confirmed Active Hyperlipemia Confirmed Active Hypertension Confirmed Active Renal stone Confirmed Active Elevated LFTs Confirmed Active Diabetic neuropathy Confirmed Active Fatty liver disease, nonalcoholic Confirmed Active Osteopenia Confirmed Active Paresthesia Confirmed Active Breast cancer screening by mammogram Confirmed Active Adult general medical examination Confirmed Active Sleep apnea Confirmed Active Syncope Confirmed Active Heart murmur, systolic Confirmed Active Controlled diabetes mellitus type II without complication Confirmed Active Social History Social History Type Response Tobacco Never tobacco user T obacco Use:. Sex Female Patient Care team information Care Team Personnel Name: Maureen Wang APRN Position: No Access Member Role: Primary Care Physician Address: Address: [address] [place] [id number]- Care Team Related Persons Name: KAILASH WHARTON Address: [address] [facility] [address] [place], [place] [address]
[2023-09-02 14:34] LABS: Ferritin 64 ng/mL (8-252); TSH (W/Ref FT4) 2.15 uIU/mL (0.36-3.74)
== END 2023-09-02 04:34 | disposition home or self-care (01) ==
LOC: LBO 04:33
PROVIDERS: PCP Nurse Practitioner Family; Visit Provider Nurse Practitioner
DX: M54.9 Dorsalgia, unspecified (principal); R53.83 Other fatigue
CPT/HCPCS: 36415; 82728; 84443

== ENCOUNTER → 2024-02-29 02:39 | Outpatient (CLI) | payer MEDICARE, SELFPAY ==
--- NOTE | 2024-02-29 | DI.US_ITS ---
Exam(s) US ABDOMEN LIMITED EXAM: US ABDOMEN LIMITED CLINICAL HISTORY: FATTY LIVER, K76.0 TECHNIQUE: Ultrasound abdomen performed using standard protocol. COMPARISON: US US ABDOMEN LIMITED from 04/03/2023 FINDINGS: LIVER: Liver is unchanged in size at 16.7 cm in length. There is mild diffuse increased echogenicity consistent with mild hepatic steatosis. No focal liver lesions are seen. GALLBLADDER: Status post cholecystectomy. CERVANTES'S SIGN: Negative. BILIARY SYSTEM: No intrahepatic or extrahepatic biliary ductal dilation. Right KIDNEY: Small size. No evidence of renal calculi. No evidence of hydronephrosis. No renal mass or cyst identified. PANCREAS: Normal where visualized. ABDOMINAL AORTA AND IVC: Visualized portions normal caliber. ASCITES: None seen. IMPRESSION: Stable mild hepatic steatosis DATA REPOSITORY:
== END ==
PROVIDERS: PCP Nurse Practitioner Family; Visit Provider Nurse Practitioner Family
DX: K76.0 Fatty (change of) liver, not elsewhere classified (principal)
CPT/HCPCS: 76705

== ENCOUNTER 2024-03-22 18:31 | Outpatient (REF) | payer MEDICARE, SELFPAY ==
[2024-03-22 21:31] LABS: HCT 37.7 % (36.0-46.0); HGB 12.6 g/dL (11.2-15.7); MCH 31.2 pg (27.0-33.0); MCHC 33.4 % (32.0-36.0); MCV 93 fL (80-95); MPV 10.2 fL (8.0-11.0); Platelet Count 264 10^3/uL (130-400); RBC 4.04 10^6/uL (3.93-5.22); RDW 11.7 % (11.7-14.6); WBC 8.25 10^3/uL (4.4-10.8)
[2024-03-22 22:08] LABS: Absolute Basophil Count 0.17 10^3/uL (0.0-0.2); Absolute Eosinophil Count 0.25 10^3/uL (0.0-0.7); Absolute Lymphocyte Count 2.39 10^3/uL (1.2-3.4); Absolute Monocyte Count 0.58 10^3/uL (0.1-0.8); Absolute Neutrophil Count 4.87 10^3/uL (1.2-6.7); Diff Comment Manual Differential; RBC Morphology Normal
[2024-03-22 22:14] LABS: ALT 42 U/L (14-59); AST 23 U/L (15-37); Albumin 4.3 g/dL (3.4-5.0); Alkaline Phosphatase 78 U/L (46-116); Anion Gap 7.5 mmol/L (3-11); BUN 17 mg/dL (7-18); Bilirubin, Total 0.62 mg/dL (0.2-1.0); CO2 31.5 mmol/L (21.0-32.0); CREATININE 0.8 mg/dL (0.55-1.02); Calcium 9.8 mg/dL (8.5-10.1); Chloride 96 mmol/L (98-107); Estimated GFR 78.24 (mL/min/1.73m2); Glucose 108 mg/dL (74-106); Magnesium 1.6 mg/dL (1.8-2.4); Potassium 4.4 mmol/L (3.5-5.1); Sodium 135 mmol/L (136-145); Total Protein 7.7 g/dL (6.4-8.2); Vitamin B12 339 pg/mL (193-986); Vitamin D 25 Total 60.2 ng/mL (30-100)
== END 2024-03-22 18:32 | disposition home or self-care (01) ==
LOC: NCHCN 18:31
PROVIDERS: PCP Nurse Practitioner Family; Visit Provider Nurse Practitioner Family
DX: M85.80 Other specified disorders of bone density and structure, unspecified site (principal); Z00.00 Encounter for general adult medical examination without abnormal findings
CPT/HCPCS: 80053; 82306; 82607; 83735; 85025

== ENCOUNTER 2025-03-08 00:18 | Outpatient (CLI) | payer MEDICARE, SELFPAY ==
--- NOTE | 2025-03-08 | DI.DEXA_ITS ---
Exam(s) XR DEXA BONE DENSITY W/WO ALBERT EXAM: XR DEXA BONE DENSITY W/WO ALBERT CLINICAL HISTORY: OSTEOPENIA, M85.88, OTHER SPECIFIED DISORDERS OF BONE DENSITY TECHNIQUE: [employer] C densitometer analysis of left hip, lumbar spine and left forearm. Lateral survey image of the thoracic and lumbar spine. COMPARISON: ALBERT from 11/29/2007 DX DEXA BONE DENSITY WITH ALBERT from 02/16/2018 CR XR DEXA BONE DENSITY W/WO ALBERT from 02/08/2021 FINDINGS: Lateral view of the thoracic and lumbar spine shows a stable moderate compression fracture of T12. Bone mineral density measurements of the lumbar spine correspond to a total T- score of -1.1, in the osteopenic range. This is not significantly changed from 2020 but represents a 3.4 percent increase from 2007. Bone mineral density measurements of the left hip correspond to a total T-score of -1.5, in the osteopenic range. This this is not significantly changed from 2020 but represents a 12.9 percent decrease from 2007. The femoral neck T-score is -2.1. Theleft forearm bone mineral density measurements correspond to a T-score of the distal 3rd of -0.7, in the normal range. This is not significantly changed from 2018. The opposite forearm was analyzed in in 2020 which showed A T-score of -0.4. Forearm was not analyzed in 2007. IMPRESSION: Osteopenia of the spine and hip. Normal bone mineral density of the forearm.
--- NOTE | 2025-03-08 | DI.US_ITS ---
Exam(s) US ABDOMEN LIMITED EXAM: US ABDOMEN LIMITED CLINICAL HISTORY: STEATOTIC LIVER DISEASE, K76.0, FATTY CHANGE OF LIVER TECHNIQUE: Ultrasound abdomen performed using standard protocol. COMPARISON: US US ABDOMEN LIMITED from 02/29/2024 FINDINGS: LIVER: The liver measures 17.5 cm in length. Mildly increased echogenicity consistent with mild hepatic steatosis, stable in appearance from the prior exam.Echogenicity. No focal liver lesions are seen. GALLBLADDER: Status post cholecystectomy. BILIARY SYSTEM: No intrahepatic or extrahepatic biliary ductal dilation. RIGHT KIDNEY: Normal size. No evidence of renal calculi. No evidence of hydronephrosis. No suspicious renal mass. No cyst identified. PANCREAS: Normal where visualized. ABDOMINAL AORTA AND IVC: Visualized portions normal caliber. ASCITES: None seen. IMPRESSION: Stable appearance of mild hepatic steatosis. DATA REPOSITORY:
== END 2025-03-08 00:38 ==
PROVIDERS: PCP Nurse Practitioner Family; Visit Provider Nurse Practitioner Family
DX: M85.88 Other specified disorders of bone density and structure, other site (principal); K76.0 Fatty (change of) liver, not elsewhere classified
CPT/HCPCS: 77080; 76705

== ENCOUNTER 2025-05-26 15:21 | Outpatient (REF) | payer MEDICARE, SELFPAY ==
[2025-05-26 21:44] LABS: Abs Immature Grans 0.02 10^3/uL (0.0-0.06); HCT 37.2 % (36.0-46.0); HGB 12.5 g/dL (11.2-15.7); Immature Grans % 0.3 %; MCH 30.6 pg (27.0-33.0); MCHC 33.6 % (32.0-36.0); MCV 91 fL (80-95); MPV 10.3 fL (8.0-11.0); Platelet Count 301 10^3/uL (130-400); RBC 4.08 10^6/uL (3.93-5.22); RDW 11.7 % (11.7-14.6); RDW-SD 39.2 fL; WBC 7.57 10^3/uL (4.4-10.8)
[2025-05-26 22:21] LABS: ALT 39 U/L (14-59); AST 19 U/L (15-37); Albumin 4.3 g/dL (3.4-5.0); Alkaline Phosphatase 69 U/L (46-116); Anion Gap 11.2 mmol/L (3-11); BUN 17 mg/dL (7-18); Bilirubin, Total 0.6 mg/dL (0.2-1.0); CO2 27.8 mmol/L (21.0-32.0); Calcium 9.8 mg/dL (8.5-10.1); Chloride 92 mmol/L (98-107); Estimated GFR 91.26 (mL/min/1.73m2); Glucose 104 mg/dL (74-106); Magnesium 1.7 mg/dL (1.8-2.4); Potassium 4.2 mmol/L (3.5-5.1); Sodium 131 mmol/L (136-145); Total Protein 7.6 g/dL (6.4-8.2); Vitamin B12 519 pg/mL (193-986); Vitamin D 25 Total 62 ng/mL (30-100)
== END 2025-05-26 15:22 | disposition home or self-care (01) ==
LOC: NCHCN 15:21
PROVIDERS: PCP Nurse Practitioner Family; Visit Provider Nurse Practitioner Family
DX: M85.80 Other specified disorders of bone density and structure, unspecified site (principal); E11.42 Type 2 diabetes mellitus with diabetic polyneuropathy
CPT/HCPCS: 80053; 82306; 82607; 83735; 85025